=== PATIENT | female | born 1995 | race Caucasian/White ===

== ENCOUNTER 2019-04-28 06:29 | Inpatient (IN) ==
[2019-04-28] MEDS ORDERED: NS 1,000 ML IV ONE ×3 (06:53→08:24)
[2019-04-28] MEDS ORDERED: BENADRYL IM ONE (07:08)
[2019-04-28] MEDS ORDERED: STERILE WATER INJ. INJ ONE ×2 (07:08→08:56)
[2019-04-28] MEDS ORDERED: GEODON IM ONE ×2 (07:08→08:56)
[2019-04-28] MEDS ORDERED: ATIVAN IM ONE (07:08)
[2019-04-28] MEDS ORDERED: POTASSIUM CHLORIDE 20% LIQUID PO PRN (07:09)
[2019-04-28] MEDS ORDERED: HUMULIN R IV ONE (07:09)
[2019-04-28] MEDS ORDERED: SODIUM PHOSPHATE 30 MMOL in D5W 250 ML IV PRN ×2 (07:09→14:25)
[2019-04-28] MEDS ORDERED: POTASSIUM CHLORIDE 10% LIQUID PO PRN ×2 (07:09→14:25)
[2019-04-28] MEDS ORDERED: D50W SYRINGE IV PRN ×2 (07:09)
[2019-04-28] MEDS ORDERED: MAGNESIUM SULFATE 2 GM/S.W.I. 2 GM/50 ML IVPB IV PRN (07:09)
[2019-04-28] MEDS ORDERED: POTASSIUM CHLORIDE 20 MEQ/SWI 20 MEQ/100 ML IVPB IV PRN ×2 (07:09)
[2019-04-28] MEDS ORDERED: SODIUM BICARBONATE 8.4% 100 MEQ in STERILE WATER INJ. 500 ML IV PRN ×2 (07:09→14:25)
[2019-04-28] MEDS ORDERED: HUMULIN R 100 UNIT in NS 100 ML IV SCH ×2 (07:15→14:30)
[2019-04-28 08:06] LABS: ALLEN TEST NO; BE -7.8 mmoll (-3.0-3.0); BLOOD TYPE ARTERIAL; HCO3-(ACT) 18.8 mmoll (20.0-26.0); METHB 1.3 % (0.0-1.5); MODALITY ROOM AIR; O2HB 94.4 % (95.0-99.0); PCO2(98.6) 30 mmHg (35-45); PO2(98.6) 77 mmHg (60-100); SAMPLE BLOOD; SAO2 97.2 % (95.0-100.0); THB 12.8 g/dL (11.5-17.4); pH(98.6) 7.35 (7.35-7.45)
[2019-04-28 08:09] LABS: URINE SOURCE CATH
[2019-04-28 08:20] LABS: BILIRUBIN URINE NEGATIVE (NEGATIVE); BLOOD URINE SMALL (NEGATIVE); COLOR STRAW; GLUCOSE URINE >1000 mg/dL (NEGATIVE); KETONE URINE 20 mg/dL (NEGATIVE); LEUKOCYTES URINE NEGATIVE (NEGATIVE); NITRITE URINE NEGATIVE (NEGATIVE); PH URINE 5.5; PROTEIN URINE NEGATIVE (NEGATIVE); SP GRAVITY URINE 1.023; TURBIDITY URINE CLEAR (CLEAR); UROBILINOGEN URINE NORMAL (NORMAL)
[2019-04-28 08:22] LABS: UR EPITHELIAL CELLS <10 /HPF (<10); URINE BACTERIA 2+ /HPF; URINE RBC <10 /HPF (<10); URINE WBC <10 /HPF (<10)
[2019-04-28] MEDS ORDERED: ZOSYN 4.5 GM in NS 100 ML IV ONE (08:24)
[2019-04-28] MEDS: OFIRMEV 1000 MG/ISOTONIC SOLN 1,000 MG/100 ML BOTTLE IV PRN ×2 (08:30→14:48)
[2019-04-28 08:31] LABS: HEMATOCRIT 40.5 % (37.0-47.0); HEMOGLOBIN 12.5 g/dL (12.0-16.0); MCHC 30.9 g/dL (33-37); MCV 84.4 FL (81-99); MPV 11.6 FL (7.4-10.4); RBC 4.8 XMIL (4.2-5.4); WBC 14.94 X1000 (4.8-10.8)
[2019-04-28 08:40] LABS: UR AMPHETAMINES QUAL NONE DETECTED (NONE DETECT); UR BARBITUATES QUAL NONE DETECTED (NONE DETECT); UR BENZODIAZEPIN QUAL NONE DETECTED (NONE DETECT); UR CANNABINOIDS QUAL NONE DETECTED (NONE DETECT); UR COCAINE QUAL PRESUMPTIVE POSITIVE (NONE DETECT); UR METHADONE QUAL NONE DETECTED (NONE DETECT); UR OPIATES QUAL NONE DETECTED (NONE DETECT); UR OXYCODONE QUAL NONE DETECTED (NONE DETECT); UR PCP QUAL NONE DETECTED (NONE DETECT)
[2019-04-28 08:46] LABS: AGAP 27; ALB/GLOB RATIO 1.4; ALBUMIN 4.6 g/dL (3.5-5.0); ALKALINE PHOSPHATASE 140 U/L (32-104); BUN 25 mg/dL (8-22); CALCIUM 9.8 mg/dL (8.8-10.2); CHLORIDE 87 mmol/L (98-107); CK PROFILE 61 U/L (24-173); COSMO 305; CREATININE 1.2 mg/dL (0.5-0.9); ESTIMATED GFR 55; GOT 11 U/L (10-30); GPT 10 U/L (10-36); MAGNESIUM 2.2 mg/dL (1.5-2.7); PHOSPHORUS 4.5 mg/dL (2.7-4.5); POTASSIUM 5.3 mmol/L (3.5-5.1); SODIUM 132 mmol/L (136-145); TCO2 18 mmol/L (25-35); TOTAL BILIRUBIN 0.25 mg/dL (0.20-1.00)
[2019-04-28 08:48] LABS: INR 0.94; PROTIME 12.7 Seconds (11.0-16.0)
[2019-04-28 08:56] LABS: GLUCOSE 746 mg/dL (70-104)
[2019-04-28] MEDS ORDERED: ATIVAN IV ONE (08:56)
[2019-04-28] MEDS ORDERED: TORADOL IV ONE (08:56)
--- NOTE | 2019-04-28 09:01 | Diag Imaging Result Doc PS360 ---
EXAM: CHEST-PORTABLE INDICATION: ams TECHNIQUE: One view COMPARISON: 06/24/2012 FINDINGS: The lungs are grossly clear. There is no discrete pleural fluid collection or pneumothorax. The cardiomediastinal silhouette and central vasculature are grossly unremarkable. IMPRESSION: No evidence of acute pathology by plain radiograph. Electronically signed by Wisam Dooley 04/28/2019 8:59 AM
[2019-04-28 09:21] LABS: ACETONE SERUM MODERATE (NEGATIVE)
[2019-04-28] MEDS ORDERED: DANTRIUM IV STA (10:09)
[2019-04-28] MEDS ORDERED: VERSED IV ONE ×2 (10:10→12:02)
[2019-04-28] MEDS ORDERED: LABETALOL IV ONE (10:11)
[2019-04-28] MEDS ORDERED: KETAMINE IV ONE (10:12)
[2019-04-28] MEDS ORDERED: STERILE WATER IV ONE (10:30)
[2019-04-28] MEDS ORDERED: DANTRIUM IV ONE (10:30)
[2019-04-28] MEDS ORDERED: ZEMURON IV ONE ×2 (10:50→10:53)
[2019-04-28] MEDS ORDERED: STERILE WATER INJ. ONE ×2 (10:51→12:09)
[2019-04-28] MEDS ORDERED: AMIDATE IV ONE (10:53)
[2019-04-28] MEDS: NS 1,000 ML IV SCH ×3 (10:53→15:59)
[2019-04-28] MEDS ORDERED: MAXIPIME 2 GM/NS 2 GM/100 ML IVPB IV SCH (11:00)
[2019-04-28] MEDS ORDERED: VANCOMYCIN IV PER PHARMACY MISC SCH (11:00)
[2019-04-28] MEDS ORDERED: DIPRIVAN 1% 1,000 MG/100 ML BOTTLE ONE (11:01)
--- NOTE | 2019-04-28 11:11 | PROVIDER DOCUMENTATION ---
This chart was entered by Carol Monique Scribe, acting as scribe for Sergio Echevarria MD. HPI-General Adult - General Chief Complaint: DKA ALERT Stated Complaint: DIABETIC Time Seen by Provider: 04/28/19 07:05 Source: family Allergies/Adverse Reactions: Patient Allergies Allergy/AdvReac Type Severity Reaction Status Date / Time No Known Allergies Allergy Verified 04/28/19 08:14 Home Medications: Home Medication List Medication Instructions Recorded Confirmed Last Taken Type Insulin Glargine [Lantus] 24 unit SUBQ QHS 06/24/12 06/24/12 06/22/12 19:00 History Insulin Lispro [Humalog] 1 unit SUBQ DIRECTED 06/24/12 06/24/12 06/24/12 07:0 0 History NPH, Human Insulin Isophane 15 unit SQ BID #0 ml 06/25/12 Unknown Rx [Humulin N] - History of Present Illness -Gen Adult Nature of Presenting Problems: Patient is a 24 y/o female presenting to the ED today c/o possible DKA. Patient's fiancee provides history. Patient has a history of Type 1 Diabetes. Fiancee states that patient was at baseline when he left for work last night and that upon returning home, he found her laying on the ground in a pile of diarrhea. Patient is altered, combative, and nonverbal on exam. Onset/Duration: reports: just prior to arrival Associated Symptoms: reports: diarrhea, other (altered mental status) - Diabetes Related Context Context: reports: change in mental status Review of Systems - Adult - REVIEW OF SYSTEMS - ADULT ROS:: unobtainable per condition Constitutional: reports: no symptoms reported Eyes: reports: no symptoms reported Ears, Nose, Mouth & Throat: reports: no symptoms reported Cardiovascular: reports: no symptoms reported Respiratory: reports: no symptoms reported Gastrointestinal: reports: no symptoms reported Genitourinary: reports: no symptoms reported Musculoskeletal: reports: no symptoms reported Integumentary: reports: no symptoms reported Neurological: reports: no symptoms reported Psychiatric: reports: no symptoms reported Endocrine: reports: no symptoms reported Hematologic/Lymphatic: reports: no symptoms reported Allergic/Immunologic: reports: no symptoms reported All Other Systems: Reviewed and Negative Past History - Adult - PAST MEDICAL HISTORY-ADULT Review of Records: reports: Old Records Reviewed, Nursing Assessment Review, Medications Reviewed, Social history reviewed & non-contributory. Endocrine/Immune: reports: Diabetes Diabetes Type: Type 1 Physical Exam-General - PHYSICAL EXAM-ADULT Initial Vital Signs Reviewed: Yes (febrile, tachycardic, hypertensive) - CONSTITUTIONAL General Appearance: slow to respond, combative - EYES Eyes: PERRL/EOMI, pink conjunctivae - HEAD, EARS, NOSE, MOUTH & THROAT HENMT: normocephalic/atraumatic, other (dry mucous membranes) - NECK Neck: full range of motion, supple, normal inspection - RESPIRATORY Respiratory: lungs clear, normal breath sounds, no respiratory distress, no accessory muscle use, increased rate - CARDIOVASCULAR Cardiovascular: no edema, tachycardia - GASTROINTESTINAL (ABDOMEN) Abdominal Exam: non tender, soft - LYMPHATIC Lymphatic: no adenopathy - MUSCULOSKELETAL Back Exam: normal inspection Extremity: normal range of motion, normal gait, normal inspection - SKIN Integumentary: normal color, normal turgor, warm/dry - NEUROLOGIC Neurologic: grossly normal - PSYCHIATRIC Psych/Mental Status: disoriented x 3, other (combative and nonverbal on exam - requiring restraints) Progress - PLAN OF CARE/RESULTS Progress/Plan/Lab Results: Vital Signs - 8 hr 04/28/19 07:50 04/28/19 08:42 Temperature 102.9 F H 104.4 F H Pulse Rate 148 H 160 H Respiratory Rate 26 H 27 H Blood Pressure 219/187 O2 Sat by Pulse Oximetry 94 L 100 Bedside Urine ED: Urine Bedside Start: 04/28/19 06:49 Freq: NOW Status: Active Protocol: Activity Type Activity Date Activity User E-Sign Co-Sign Detail Recorded Client Recorded Date Recorded By Document 04/28/19 07:53 [id number] 04/28/19 07:53 [id number] 04/28/19 07:53 Point of Care [Bedside Point of Care] -Lot # [id number] - Results Negative -Control Line Visible? Yes ED: Urine Bedside Start: 04/28/19 07:09 Freq: NOW Status: Complete Protocol: Activity Type Activity Date Activity User E-Sign Co-Sign Detail Recorded Client Recorded Date Recorded By Edit Status 04/28/19 07:59 [id number] Active=>Complete [id number] 04/28/19 07:59 [id number] Laboratory Results - last 24 hr 02/01/20 02/01/20 02/01/20 07:30 07:51 07:51 WBC RBC Hgb Hct MCV MCH MCHC RDW Std Deviation Plt Count MPV PT INR PTT (Actin FS) Specimen Type Sample Site pH pCO2 pO2 HCO3 Base Excess Oxyhemoglobin ABG O2 Sat (Calculated) ABG O2 Saturation ABG Carboxyhemoglobin ABG Methemoglobin Rj Test A-a O2 Difference Total Hemoglobin Lactate Blood Gas Modality FiO2 % Sodium 132 L Potassium 5.3 H Chloride 87 L Carbon Dioxide 18 L Anion Gap 27 BUN 25 H Creatinine 1.2 H Estimated GFR/1.73 m2 55 BUN/Creatinine Ratio 21 Calculated Osmolality 305 Calcium 9.8 Phosphorus 4.5 Magnesium 2.2 Total Bilirubin 0.25 AST 11 ALT 10 Alkaline Phosphatase 140 H Creatine Kinase 61 Total Protein 8.0 Albumin 4.6 Globulin 3.4 Albumin/Globulin Ratio 1.4 Plasma Lactate Urine Source CATH Urine Color STRAW Urine Turbidity CLEAR Urine pH 5.5 Ur Specific [place] 1.023 Urine Protein NEGATIVE Ur Glucose (Stick) >1000 A Ur Ketones (Stick) 20 A Urine Blood SMALL A Urine Nitrite NEGATIVE Urine Bilirubin NEGATIVE Urobilinogen Dipstick NORMAL Urine Leukocytes NEGATIVE Urine WBC (Auto) <10 Urine RBC (Auto) <10 U Epithel Cells (Auto) <10 Urine Bacteria (Auto) 2+ Urine Opiates Screen Ur Oxycodone Screen Ur Methadone, Qual Ur Barbiturates Screen Ur Phencyclidine Scrn Ur Amphetamines Screen U Benzodiazepines Scrn Urine Cocaine Screen U Cannabinoids Screen Plasma/Serum Ethyl Alc 04/28/19 04/28/19 04/28/19 07:51 07:51 07:51 WBC 14.94 H RBC 4.80 Hgb 12.5 Hct 40.5 MCV 84.4 MCH 26.0 L MCHC 30.9 L RDW Std Deviation 13.0 Plt Count 368 MPV 11.6 H PT 12.7 INR 0.94 PTT (Actin FS) 24.0 Specimen Type Sample Site pH pCO2 pO2 HCO3 Base Excess Oxyhemoglobin ABG O2 Sat (Calculated) ABG O2 Saturation ABG Carboxyhemoglobin ABG Methemoglobin Rj Test A-a O2 Difference Total Hemoglobin Lactate Blood Gas Modality FiO2 % Sodium Potassium Chloride Carbon Dioxide Anion Gap BUN Creatinine Estimated GFR/1.73 m2 BUN/Creatinine Ratio Calculated Osmolality Calcium Phosphorus Magnesium Total Bilirubin AST ALT Alkaline Phosphatase Creatine Kinase Total Protein Albumin Globulin Albumin/Globulin Ratio Plasma Lactate 2.5 H Urine Source Urine Color Urine Turbidity Urine pH Ur Specific [place] Urine Protein Ur Glucose (Stick) Ur Ketones (Stick) Urine Blood Urine Nitrite Urine Bilirubin Urobilinogen Dipstick Urine Leukocytes Urine WBC (Auto) Urine RBC (Auto) U Epithel Cells (Auto) Urine Bacteria (Auto) Urine Opiates Screen Ur Oxycodone Screen Ur Methadone, Qual Ur Barbiturates Screen Ur Phencyclidine Scrn Ur Amphetamines Screen U Benzodiazepines Scrn Urine Cocaine Screen U Cannabinoids Screen Plasma/Serum Ethyl Alc 04/28/19 04/28/19 07:54 07:55 WBC RBC Hgb Hct MCV MCH MCHC RDW Std Deviation Plt Count MPV PT INR PTT (Actin FS) Specimen Type ARTERIAL Sample Site R BRACHIAL pH 7.35 pCO2 30 L pO2 77 HCO3 18.8 L Base Excess -7.8 L Oxyhemoglobin 94.4 L ABG O2 Sat (Calculated) 17.0 ABG O2 Saturation 97.2 ABG Carboxyhemoglobin 1.70 ABG Methemoglobin 1.3 Rj Test NO A-a O2 Difference 35.0 Total Hemoglobin 12.8 Lactate 2.00 Blood Gas Modality ROOM AIR FiO2 % 21.0 Sodium Potassium Chloride Carbon Dioxide Anion Gap BUN Creatinine Estimated GFR/1.73 m2 BUN/Creatinine Ratio Calculated Osmolality Calcium Phosphorus Magnesium Total Bilirubin AST ALT Alkaline Phosphatase Creatine Kinase Total Protein Albumin Globulin Albumin/Globulin Ratio Plasma Lactate Urine Source Urine Color Urine Turbidity Urine pH Ur Specific [place] Urine Protein Ur Glucose (Stick) Ur Ketones (Stick) Urine Blood Urine Nitrite Urine Bilirubin Urobilinogen Dipstick Urine Leukocytes Urine WBC (Auto) Urine RBC (Auto) U Epithel Cells (Auto) Urine Bacteria (Auto) Urine Opiates Screen NONE DETECTED Ur Oxycodone Screen NONE DETECTED Ur Methadone, Qual NONE DETECTED Ur Barbiturates Screen NONE DETECTED Ur Phencyclidine Scrn NONE DETECTED Ur Amphetamines Screen NONE DETECTED U Benzodiazepines Scrn NONE DETECTED Urine Cocaine Screen PRESUMPTIVE POSITIVE A U Cannabinoids Screen NONE DETECTED Plasma/Serum Ethyl Alc Orders Category Date Time Status Cardiac Monitoring DIRECTED Care 04/28/19 07:09 Active ED: Urine Bedside NOW Care 04/28/19 07:09 Completed FSBS/Accucheck Result NOW Care 04/28/19 06:47 Active FSBS/Accucheck Result Q15M Care 04/28/19 07:09 Active FSBS/Accucheck Result Q1H Care 04/28/19 07:09 Active Sales Cath Insertion ORDERED Care 04/28/19 07:12 Active Hypoglycemia/FSBS <50 or Range of 50-70 PRN Care 04/28/19 07:09 Active IV Insertion ORDERED Care 04/28/19 08:23 Completed Notify Physician ORDERED Care 04/28/19 07:09 Active Notify Physician As Ordered Care 04/28/19 08:23 Active Saline Loc DIRECTED Care 04/28/19 07:09 Active Saline Loc NOW Care 04/28/19 06:48 Active Seizure Precautions ROUTINE Care 04/28/19 06:48 Active Urine Preg [ED: Urine Bedside] NOW Care 04/28/19 06:49 Active Vital Signs Order Q1H Care 04/28/19 07:09 Active CHEST-PORTABLE [RAD] Stat Exams 04/28/19 07:[address] HEAD W/O CONTRAST [CT] Stat Exams 04/28/19 07:12 Ordered ABG [RESP] Routine Lab 04/28/19 07:55 Completed ACETONE SERUM [CHEM] Stat Lab 04/28/19 07:51 Results ALCOHOL BLOOD Stat Lab 04/28/19 07:51 Completed BLOOD CULTURE [BLDCUL] Stat Lab 04/28/19 07:51 Received C DIFF TOXIN [STOOL] Stat Lab 04/28/19 08:23 Uncollected CBC WITH NO DIFF [HEME] Stat Lab 04/28/19 07:51 Completed CK PROFILE [SP CHEM] Stat Lab 04/28/19 07:51 Results COMPREHENSIVE METABOLIC PANEL [CHEM] Stat Lab 04/28/19 07:51 Results LACTATE, PLASMA [CHEM] Lab 04/28/19 08:50 Ordered LACTATE, PLASMA [CHEM] Lab 04/28/19 11:30 Uncollected LACTATE, PLASMA [CHEM] Lab 04/28/19 14:30 Uncollected LACTATE, PLASMA [CHEM] Stat Lab 04/28/19 07:51 Completed MAGNESIUM [CHEM] Stat Lab 04/28/19 07:51 Results PHOSPHORUS [CHEM] Stat Lab 04/28/19 07:51 Results PROTIME WITH INR [COAG] Stat Lab 04/28/19 07:51 Completed PTT [COAG] Stat Lab 04/28/19 07:51 Completed STOOL CULTURE [RM] Stat Lab 04/28/19 08:23 Uncollected TROPONIN T HIGH SENSITIVITY Stat Lab 04/28/19 07:54 Received URINALYSIS [URINALYSIS] Stat Lab 04/28/19 07:30 Completed URINE DRUG SCREEN Stat Lab 04/28/19 07:54 Completed 0.9% Sodium Chloride Inj [Ns] 1,000 ml Med 04/28/19 07:15 Active IV 500 mls/hr 0.9% Sodium Chloride Inj [Ns] 1,000 ml Med 04/28/19 06:53 Discontinued IV 999 mls/hr 0.9% Sodium Chloride Inj [Ns] 1,000 ml Med 04/28/19 07:09 Discontinued IV 999 mls/hr 0.9% Sodium Chloride Inj [Ns] 1,000 ml Med 04/28/19 08:24 Active IV 999 mls/hr 0.9% Sodium Chloride Inj [Ns] 100 ml Med 04/28/19 07:15 Active Insulin Human Regular [Humulin R] 100 unit IV Per Protocol mls/hr Acetaminophen [Ofirmev 1000 mg/Isotonic Soln] Med 04/28/19 08:24 Active 1,000 mg in 100 ml IV Q6H PRN Dextrose 50% Syringe [D50w Syringe] Med 04/28/19 07:09 Active 25 ml IV PRN PRN Dextrose 50% Syringe [D50w Syringe] Med 04/28/19 07:09 Active 50 ml IV PRN PRN Diphenhydramine [Benadryl] Med 04/28/19 07:08 Discontinued 50 mg IM NOW ONE Insulin Human Regular [Humulin R] Med 04/28/19 07:09 Discontinued 8 unit IV ONCE ONE Lorazepam [Ativan] Med 04/28/19 07:08 Discontinued 2 mg IM NOW ONE Magnesium Sulfate 2 gm/S.w.i. Med 04/28/19 07:09 Active 2 gm in 50 ml IV ONCE PRN Piperacillin/Tazobactam [Zosyn] 4.5 gm Med 04/28/19 08:24 Active 0.9% Sodium Chloride Inj [Ns] 100 ml IV NOW Potassium Chloride 10% Liquid Med 04/28/19 07:09 Active 20 meq PO ONCE PRN PRN Potassium Chloride 20 Meq/Swi Med 04/28/19 07:09 Active 20 meq in 100 ml IV ONCE PRN Potassium Chloride 20 Meq/Swi Med 04/28/19 07:09 Active 20 meq in 100 ml IV ONCE PRN Potassium Chloride 20% Liquid Med 04/28/19 07:09 Active 40 meq PO ONCE PRN PRN Sodium Bicarbonate 8.4% 100 meq Med 04/28/19 07:09 Active Water, Sterile Inj [Sterile Water Inj] 500 ml IV ONCE PRN Sodium Phosphate 30 mmol Med 04/28/19 07:09 Active Dextrose 5%-Water Inj [D5w] 250 ml IV ONCE PRN Water, Sterile Inj [Sterile Water Inj.] Med 04/28/19 07:08 Discontinued 1.2 ml INJ NOW ONE Ziprasidone [Geodon] Med 04/28/19 07:08 Discontinued 20 mg IM NOW ONE Hypoglycemia Stat Oth 04/28/19 07:09 Ordered Oxygen Device Stat Ot 04/28/19 08:23 Active EKG [EKG] Routine Ther 04/28/19 07:09 Ordered Result Diagrams: 04/28/19 07:51 04/28/19 07:51 - REASSESSMENT Reassessment #1 Time Reassessed: 09:50 Status: unchanged (temperature is still 104 despite IV Toradol and IV Tylenol. Will apply ice packs. Patient's combative behavior is improved with sedation) Reassessment #2 Time Reassessed: 10:10 Status: unchanged (Patient continues to be agitated, remains tachycardic at 150 as well as hypertensive and tachypnic, her blood sugar is now 470) Reassessment #3 Time Reassessed: 11:08 Status: improving (After consulting with Dr. Franks, we have decided to electively intubate to control airway and obtain CT scans. Patient has shown minimal sedation with multiple BZD, and Geodon and benadryl. Has been given IV zosyn for possible sepsis. I ordered IV labetalol for severe HTN, I also ordered IV dantrolene infusion in case of drug induced malignant hyperthermia.) - EKG 1 Time of EKG reading by physician:: 08:00 EKG Read and Signed by:: Sergio Echevarria EKG Interpretation (*Must complete 3 of following elements*): Abnormal Rate: 147 Rhythm: Sinus tachycardia QRS: poor R wave progression Comments: artifact present, biatrial enlargement - XRAY 1 XRAY Study: Chest Impression: See EMR Report (EXAM: CHEST-PORTABLE INDICATION: ams TECHNIQUE: One view COMPARISON: 06/24/2012 FINDINGS: The lungs are grossly clear. There is no discrete pleural fluid collection or pneumothorax. The cardiomediastinal silhouette and central vasculature are grossly unremarkable. IMPRESSION: No evidence of acute pathology by plain radiograph. Electronically signed by Wisam Dooley 04/28/2019 8:59 AM 04/28/19 0859 Interpreting Physician: Wisam Dooley MD Dictated Date/Time: 04/28/19 0858 cc: Sergio Echevarria MD; None,PCP) - CONSULTS/PCP/HOSPITALIST Notification #1 *Consult/PCP/Hospitalist*: Hospitalist Time Discussed: 10:19 Reason/Comments: Admission - patient accepted for admission Consult Disposition: Will see in ED, Admit Departure - Departure Date of Disposition Decision: 04/28/19 Time of Disposition Decision: 11:10 DIAGNOSIS: Severe sepsis, Malignant hypertension, Cocaine abuse Diabetic ketoacidosis associated with type 1 diabetes mellitus Qualifiers: Diabetes mellitus complication detail: with coma Qualified Code(s): E10.11 - Type 1 diabetes mellitus with ketoacidosis with coma Hyperthermia, malignant Qualifiers: Encounter type: initial encounter Qualified Code(s): T88.3XXA - Malignant hyperthermia due to anesthesia, initial encounter Disposition: ADMITTED INPATIENT 09 Certified Medical Emergency: Emergent Condition: Critical Referrals and Follow-Ups: None,PCP [Primary Care Provider] - - Critical Care Note This patient required my direct & personal management of CC.: Yes Total Time (mins): 60 Critical Care Statement: This patient required my direct personal management to treat or rule out processes, the absence of which, could potentiallly result in sudden, clinically significant life or limb threatening deterioration. Attestation - Physician/ MITZY Attestation Patient care was provided by Advanced Practice Provider:: No The physician spent face to face time with patient:: Yes Advanced Practice Provider documentation review:: Supervising physician onsite and consulted in the evaluation and care of this patient. The physician did have a face to face encounter with the patient. This chart was documented by the indicated scribe, (Carol Monique Scribe) and accurately reflects the services I performed and decisions made by me, Sergio Echevarria MD, as attested by the provider's signature.
[2019-04-28] MEDS: DIPRIVAN 1% 1,000 MG/100 ML BOTTLE IV SCH ×4 (11:13→22:09)
[2019-04-28] MEDS ORDERED: WATER INJ ONE ×2 (11:48→11:50)
[2019-04-28] MEDS ORDERED: MAXIPIME 2 GM/NS 2 GM/100 ML IVPB IV ONE (12:00)
[2019-04-28] MEDS ORDERED: VERSED ONE (12:07)
--- NOTE | 2019-04-28 12:23 | Diag Imaging Result Doc PS360 ---
EXAM: CHEST-PORTABLE INDICATION: intubation TECHNIQUE: One view COMPARISON: None. FINDINGS: There is a newly placed ET tube projects over the trachea and above the binh at about the T3 level. Lungs remain grossly clear. There is no discrete pleural fluid collection or pneumothorax. The cardiomediastinal silhouette and central vasculature are grossly unremarkable. IMPRESSION: Interval intubation as described. Stable chest, otherwise. Electronically signed by Wisam Dooley 04/28/2019 12:21 PM
--- NOTE | 2019-04-28 13:15 | SEPSIS: TISSUE PERFUSION ASSMT ---
Sepsis: Tissue Perfusion Assmt - Physical Exam Assessment Date: 04/28/19 Time Assessment Initialized: 13:11 Vital Signs: Last Vital Signs Temp 102.6 F H 04/28/19 12:58 Pulse 115 H 04/28/19 12:58 Resp 18 04/28/19 12:58 BP 108/64 04/28/19 12:58 Pulse Ox 100 04/28/19 12:58 Height 5 ft 4 in Weight 54.431 kg Lung Sounds:: lungs clear Heart Sounds:: Regular (tachycardic still) Capillary Refill Time: Less Than 2 Seconds Peripheral Pulse Evaluation:: radial (R): 2+, radial (L): 2+ Skin Exam:: pale, turgor good - Impression Impression:: Tissue Perfusion Adequate - Plan Plan:: No Change
--- NOTE | 2019-04-28 13:50 | Diag Imaging Result Doc PS360 ---
EXAM: CT HEAD W/O CONTRAST INDICATION: ams TECHNIQUE: This exam was performed using automated exposure control, adjustment of mA or kV according to patient size, and/or use of iterative reconstruction technique. COMPARISON: None. FINDINGS: There is no definite acute infarct given the limited sensitivity of CT versus MRI. There is no discrete intracranial mass, mass effect, or intracranial hemorrhage. The surrounding soft tissues and bony structures are essentially unremarkable. IMPRESSION: No evidence of acute intracranial pathology. Electronically signed by Wisam Dooley 04/28/2019 1:47 PM
--- NOTE | 2019-04-28 13:54 | Diag Imaging Result Doc PS360 ---
EXAM: CT ABD/PELVIS W/IV CONT ONLY INDICATION: colitis TECHNIQUE: This exam was performed using automated exposure control, adjustment of mA or kV according to patient size, and/or use of iterative reconstruction technique. COMPARISON: None. FINDINGS: There is a 1.4 cm noncalcified nodule in the anterior left lower lobe at the base that is nonspecific, statistically most likely a granuloma given the age of the patient. There is mild subsegmental atelectasis at both lung bases. The gallbladder, liver, and spleen are unremarkable. There is extensive patchy calcification seen throughout the pancreatic parenchyma consistent with chronic pancreatitis. No peripancreatic inflammatory changes are appreciated to indicate acute pancreatitis. The adrenal glands are unremarkable. There is slight prominence of the left renal collecting system as compared to the right of unknown acuity. There is no perinephric stranding and the kidneys enhance normally. There is a Sales catheter in the urinary bladder. The urinary bladder wall is mildly thickened. This is probably due to underdistention. Correlate clinically to exclude a component of cystitis. The reproductive tract is essentially unremarkable as imaged. No definite colonic wall thickening is identified to indicate colitis. The appendix is not identified but there are no secondary signs of appendicitis. No small bowel wall thickening is identified. A feeding tube is seen in the gastric lumen. No free abdominal gas or significant free fluid is identified. No focal inflammatory changes are identified in the abdomen or pelvis. There is no evidence of acute osseous abnormality. IMPRESSION: 1.Extensive pancreatic calcification indicating chronic pancreatitis. No peripancreatic inflammatory changes identified to indicate acute pancreatitis. 2.Mildly prominent left renal collecting system as compared to the right of unknown acuity. No obstructing stone is identified. 3.Mild thickening of the urinary bladder wall likely due to underdistention. Correlate clinically to exclude a component of cystitis. 4.Nonspecific 1.4 cm nodule at the left lung base. 5.Other incidental/nonacute findings detailed above. Electronically signed by Wisam Dooley 04/28/2019 1:52 PM
[2019-04-28] MEDS ORDERED: POTASSIUM CHLORIDE 40 MEQ/SWI 40 MEQ/100 ML IVPB IV PRN (14:25)
[2019-04-28] MEDS ORDERED: TYLENOL PR PRN (14:25)
[2019-04-28] MEDS ORDERED: TYLENOL PO PRN (14:40)
[2019-04-28] MEDS ORDERED: PROTONIX IV SCH (15:15)
[2019-04-28] MEDS ORDERED: SODIUM CHLORIDE 0.9% INJ SCH (15:15)
[2019-04-28 15:25] LABS: HEMOGLOBIN A1C 13.3 % (4.8-6.0)
[2019-04-28] MEDS: DUONEB (A & A) INH PRN (15:40)
[2019-04-28 15:41] LABS: AMYLASE 22 U/L (20-200); LIPASE 29 U/L (13-60)
[2019-04-28 15:45] LABS: AGAP 14; BUN 20 mg/dL (8-22); CALCIUM 7.5 mg/dL (8.8-10.2); CHLORIDE 111 mmol/L (98-107); COSMO 295; CREATININE 1.1 mg/dL (0.5-0.9); ESTIMATED GFR > 60; GLUCOSE 228 mg/dL (70-104); MAGNESIUM 1.7 mg/dL (1.5-2.7); PHOSPHORUS 1.8 mg/dL (2.7-4.5); SODIUM 143 mmol/L (136-145); TCO2 18 mmol/L (25-35)
[2019-04-28 15:50] LABS: ALLEN TEST YES; BE -3.4 mmoll (-3.0-3.0); BLOOD TYPE ARTERIAL; HCO3-(ACT) 22.3 mmoll (20.0-26.0); METHB 0.6 % (0.0-1.5); O2(CT) 12.3 mL/dL (15.0-23.0); O2HB 97.7 % (95.0-99.0); PCO2(98.6) 41 mmHg (35-45); PO2(98.6) 188 mmHg (60-100); SAMPLE BLOOD; SAO2 99.7 % (95.0-100.0); SRATE 16 BPM; THB 8.6 g/dL (11.5-17.4); TVOL 450 mL; pH(98.6) 7.34 (7.35-7.45)
[2019-04-28 15:51] LABS: MODALITY VENTILATOR
[2019-04-28] MEDS: VERSED 100 MG in NS 80 ML IV SCH (15:52)
--- NOTE | 2019-04-28 15:53 | HISTORY AND PHYSICAL ---
ADDENDUM: I agree with most components of history, physical assessment and plan. In brief Ms. Cintron is 24 years old lady with past medical history of type 1 diabetes mellitus, medication noncompliance due to cost issues, was brought in by her boyfriend as she was found to be unresponsive with her clothes untied and bowel movement on the floor. Initially I was consulted by emergency room physician to help with her management considering she was significantly agitated in the emergency room despite receiving multiple sedative hypnotic medications and head CT could not be performed. I had evaluated her at that time and had obtained history from her boyfriend and had suggested to the emergency room that patient may need intubation for airway protection considering persistently altered mental status and head CT could be performed, if head CT did not have an acute intracranial bleed my plan was to admit her for further management of her DKA and acute encephalopathy. Head CT did not have an acute intracranial bleed so I am going to admit the patient. Source of history has been patient's boyfriend. According to him, patient was in her usual state of health until yesterday 10 p.m. when he saw her for the last time and then patient had left to her friend's house, boyfriend tells me that patient has been taking her insulin though not very regularly and patient has also been intermittently snorting cocaine, boyfriend says it is possible that she may have snorted cocaine last night though he was not sure. Boyfriend says that he got a call from patient's friend that patient was behaving abnormally so he went there and called EMS and brought patient to the emergency room. In the emergency room patient was found to be agitated and confused and had hyperglycemia with blood glucose more than 700, elevated anion gap, acute kidney injury and acetone in urine, though she was not acidotic she was borderline with pH of 7.35. She was started on intravenous fluid resuscitation according to DKA protocol, for airway protection she was intubated, was started on propofol drip and hospitalist team was consulted further management. VITALS: Temperature of 102.6 degrees, pulse 115, respiratory 18, blood pressure 108/64, she is saturating 100% on mechanical ventilation. PHYSICAL EXAMINATION: I evaluated the patient right before intubation. She is confused, agitated and is moving all extremities spontaneously appears very fidgety. Pupils are about 4 mm size bilaterally and briskly reacting to light. She likely has nasal turbinate hypotrophy on the left side, I could not appreciate oral cavity. Air entry bilaterally equal. No wheeze, rhonchi or crackles. S1, S2 normal. Appears tachycardic. No murmur, rub, or gallop. ABDOMEN: Soft. I could not appreciate hepatosplenomegaly. No lower extremity edema. She does have some petechial ricks on her both arms. Unsure if this were related to track sharon. On neurologic examination patient is noncompliant with examination. I could not appreciate any neck stiffness though but again examination was limited. She is very fidgety. LABS: Suggestive of leukocytosis, normal INR, pH of 7.34, PO2 of 77 on room air. Her sodium is 132, chloride 87, potassium 5.3, blood glucose 746, anion gap of 27, lactate of 4.4. Her urine toxicology positive for cocaine. Blood culture has been in lab, influenza screen was negative. Head CT on admission did not have any evidence of acute intracranial pathology. Chest x-ray on admission did not have any evidence of acute pathology by plain radiograph. Abdomen pelvis CT had extensive pancreatic calcification suggestive of chronic pancreatitis, mildly prominent left renal collecting system as compared to right, urinary bladder wall thickening and nonspecific nodule on the left lung base. ASSESSMENT AND PLAN: 1. Sepsis the source of which needs to be determined, acute meningitis is a possibility. 2. Hyperthermia. Differential includes sepsis, DKA, serotonin syndrome though there is no history of use of any medications for anxiety or depression there have been case reports of cocaine inducing it. 3. Diabetic ketoacidosis. 4. Acute encephalopathy: Toxic due to cocaine use vs other etiology 5. S/p Intubation for airway protection 4. Substance use disorder. 5. Lactic acidosis, acute kidney injury in the setting of diabetic ketoacidosis. PLAN: 1. I will start patient on broad spectrum antibiotics including intravenous vancomycin and intravenous cefepime for better CSF penetration for suspected meningitis, follow up with blood culture results. Once she is more stable I will consider getting lumbar puncture. 2. Patient has been intubated. Will resume mechanical ventilation and consult Pulmonology. I will keep her on proton pump inhibitors for stress ulcer prophylaxis and enoxaparin for DVT prophylaxis. 3. I will keep her on acetaminophen for hyperthermia, if needed Melinda Villalta as well for her hyperthermia. 4. I will start her on DKA protocol. She has been resuscitated with intravenous fluids and will be starting her on insulin drip. 5. Consult pulmonology for ventilator management. DISPOSITION: Patient's condition is critical. More than 30 minutes of critical care time was spent taking care of this patient. I had an extensive discussion about her critical condition including high risk of mortality with her boyfriend. Her boyfriend informs me that patient does not have any immediate relative that she is in touch with. She does have a mother with whom she speaks however the contact information about her mother is not immediately available. I requested her boyfriend to bring us those information so that I could inform the family members. Plan of care discussed with the patient's boyfriend and 2 of other friends. All of the questions have been satisfactorily answered. cc: Roldan Franks MD ADDENDUM: 1700 PM 04/28/19: I again evaluated the patient at bedside. She is on high dose propofol and Midazolam drip. She is still fidgety. When I touched her to examine her pulse, she started becoming fidgety. My initial plan was to get a lumbar puncture for meningitis rule out. However, considering her extreme agitation, I don't think I would be able to do it today. Meanwhile, I would keep her on antibiotics and follow up blood culture data. [facility]
--- NOTE | 2019-04-28 16:59 | PROGRESS NOTE ---
DATE: 04/28/2019 INTERVAL HISTORY: Patient underwent head CT which did not have acute intracranial hemorrhage or stroke. She also underwent abdomen and pelvis CT which had some changes suggestive of chronic pancreatitis, but there is no acute pathology identifiable. The patient was also intubated by emergency room. Currently, she is sedated on propofol and midazolam. She is still a little fidgety and respiratory therapy just suctioned her. I updated the boyfriend about the diabetes management and the fact that she is extremely sick and we are monitoring her in ICU. cc: Roldan Franks MD
[2019-04-28] MEDS ORDERED: VANCOMYCIN 1.4 GM in NS 250 ML IV ONE (17:00)
[2019-04-28] MEDS ORDERED: LOVENOX SUBQ SCH (17:00)
[2019-04-28] MEDS: D5 NS 1,000 ML IV PRN (17:34)
--- NOTE | 2019-04-28 17:53 | EKG Report ---
Test Performed on : 04/28/2019 07:51:22 AM Test Reason : DKA Blood Pressure : / mmHG Vent. Rate : 147 BPM Atrial Rate : 147 BPM P-R Int : 122 ms QRS Dur : 070 ms QT Int : 286 ms P-R-T Axes : 072 093 058 degrees QTc Int : 447 ms Sinus tachycardia. Biatrial enlargement Rightward axis Abnormal ECG When compared with ECG of 24-JUN-2012 12:20, No significant change was found Unconfirmed Result
[2019-04-28 18:00] LABS: URINE SOURCE CATH
[2019-04-28 18:02] LABS: BILIRUBIN URINE NEGATIVE (NEGATIVE); BLOOD URINE SMALL (NEGATIVE); COLOR YELLOW; GLUCOSE URINE 500 mg/dL (NEGATIVE); KETONE URINE TRACE mg/dL (NEGATIVE); LEUKOCYTES URINE NEGATIVE (NEGATIVE); NITRITE URINE NEGATIVE (NEGATIVE); PH URINE 6.5; PROTEIN URINE TRACE mg/dL (NEGATIVE); TURBIDITY URINE CLEAR (CLEAR); UR EPITHELIAL CELLS <10 /HPF (<10); URINE BACTERIA NEGATIVE /HPF; UROBILINOGEN URINE NORMAL (NORMAL)
--- NOTE | 2019-04-28 18:17 | HISTORY AND PHYSICAL ---
PRIMARY CARE PROVIDER: No one. CHIEF COMPLAINT: Was found in an altered state of mind in the floor. HISTORY OF PRESENT ILLNESS: Ms Aileen Cintron is a 24-year-old female with a medical history of known diabetes mellitus type 1. History over the last 24 hours is obtained through the boyfriend who was at the bedside. He states that around 10 o'clock last night she was normal, had gone to a friend's house when he went to work, was called and notified by the friend that she was not acting right and came home and found her in the floor with an altered mentation along with loss of bowel and bladder was then brought to the emergency department where she was found to be in diabetic ketoacidosis. However the pH is not significantly acidotic. Workup included urine drug screen which is positive for cocaine. She did have an elevated white blood cell count at 14,000 and her lactate was also elevated and with that she also had an elevation in her temperature it despite medication given to help calm the patient down as she was significantly agitated and medications to help bring the fever down none of that worked her fever even continue to increase up to a max of 104.7. On further questioning the boyfriend at the bedside apparently she has been having sore throat, headache, neck stiffness, she has also had some stomach pain and stomach troubles with diarrhea for about a month with a 15 pound weight loss. Given the severe agitation, it was decided to electively intubate her for airway protection and send her for head CT and further imaging. PAST MEDICAL HISTORY: Diabetes mellitus type 1. Chronic pancreatitis. SURGICAL HISTORY: None. SOCIAL HISTORY: Less than a half pack per day smoker, drinks alcohol about once every other weekend, an unknown amount of cocaine use. FAMILY HISTORY: There is diabetes in both grandparents but apparently she is not very close to the family. ALLERGIES: No known drug allergies. HOME MEDICATIONS: Not reconciled. REVIEW OF SYSTEMS: Unable to be obtained. PHYSICAL EXAMINATION: VITAL SIGNS: Currently were now down to 100.2, heart rate 103, respiratory rate 17, blood pressure 102/65, O2 saturation 100% on mechanical ventilation. GENERAL: Ms. Aileen Cintron is a 24-year-old female, currently she is sedated with propofol. HEENT: Atraumatic, normocephalic. Pupils are equal and reactive. Mucous membranes are dry. NECK: Trachea midline. CARDIOVASCULAR: S1, S2. Tachycardic rate and rhythm. No rubs, gallops, murmurs. No lower extremity edema. +2 dorsalis and radial pulses. Negative JVD or carotid bruits. PULMONARY: Clear to auscultation bilateral breath sounds. No accessory muscle use or work of breathing noted. She is tolerating mechanical ventilation. GI: Soft, nontender, nondistended. Positive bowel sounds x4. EXTREMITIES: Currently sedated and not moving extremities but she had spontaneous movement prior to sedation. NEURO: Currently sedated. SKIN: Warm, dry, intact. LABORATORY DATA: White blood cells 14,000, hemoglobin 12, hematocrit 40, platelet count 368,000. ABGs on the vent pH 7.34, pCO2 40, PO2 188, bicarb 22, base excess -3.4, saturation 97%. Lactate 2.1 on a rate of 16, 40%, 450 tidal volume, PEEP of 5. Chemistry 143, potassium 4.0, BUN 20, creatinine is 1.1, glucose 228. Hemoglobin A1c 13.3, calcium 7.5, phosphorus 1.8, magnesium 1.7, bilirubin 0.25, AST 11, ALT 10, CK 61, troponin 8, triglycerides 123, cholesterol 139, LDL 86, amylase 22, lipase 29, lactate has gone from 2.5 to 4.4 back down to 3.8. Urinalysis, glucose greater than 1000, ketones 20, blood small, bacteria 2+. Urine drug screen positive for cocaine, alcohol 0, acetone level moderate. IMAGING: Head CT no acute findings. Chest x-ray no evidence of acute pathology. Abdomen pelvis CT impression shows pancreatic calcification consistent with chronic pancreatitis, prominent left renal collecting system compared to the right night, no stones. Thickened urinary bladder, possible cystitis. Left lung nodule 1.4 cm. Repeat chest x-ray after intubation endotracheal tubes in the correct position. ASSESSMENT AND PLAN: 1. Fever of unknown origin, causes could be possible meningitis. There is mention of headache and stiff neck along with sore throat. It could be blood which we have obtained blood cultures. Flu is negative, sputum pending. 2. Sepsis, see #1. She will be on broad-spectrum antibiotics and IV fluid hydration. 3. Diabetic ketoacidosis with history of diabetes mellitus type 1 and she has been started on a diabetic ketoacidosis protocol with electrolyte replacement, fluid replacement and insulin. Her anion gap is currently at 14 but initially it was at 27. Her blood glucose level initially was 746 and is down to 228, lactates up as well. 4. Cocaine abuse will need to be addressed once she is alert. 5. Intubation for airway protection and agitation. Will consult Pulmonary to manage the ventilator and help with extubation. She is on propofol currently. 6. Metabolic encephalopathy could be infective encephalopathy as well where she is on antibiotics. Electrolytes should start normalizing out and currently she is sedated. 7. Reported hypoglycemic seizures in the past. There is mention that she had a loss of bowel and bladder. It could be a possibility that there was a seizure involved. She received several benzodiazepines after she had returned here. 8. Tobacco abuse. Once she is extubated and alert cessation education will be provided. Dictated by CHINTAN Velasquez for Roldan Franks MD cc: CHINTAN Velasquez MD I agree with most components of history, physical, assessment and plan. A separate addendum has been dictated. SILVIO
[2019-04-28 18:58] LABS: AGAP 13; BUN 17 mg/dL (8-22); CALCIUM 7.4 mg/dL (8.8-10.2); CHLORIDE 115 mmol/L (98-107); COSMO 296; ESTIMATED GFR > 60; GLUCOSE 170 mg/dL (70-104); PHOSPHORUS 2.7 mg/dL (2.7-4.5); POTASSIUM 4.1 mmol/L (3.5-5.1); SODIUM 146 mmol/L (136-145); TCO2 18 mmol/L (25-35)
[2019-04-28] MEDS: POTASSIUM CHLORIDE 20 MEQ/SWI 20 MEQ/100 ML IVPB IV PRN (19:43)
[2019-04-28 23:39] LABS: AGAP 10; BUN 18 mg/dL (8-22); CALCIUM 7.3 mg/dL (8.8-10.2); CHLORIDE 117 mmol/L (98-107); COSMO 292; ESTIMATED GFR > 60; GLUCOSE 98 mg/dL (70-104); MAGNESIUM 1.8 mg/dL (1.5-2.7); PHOSPHORUS 2.2 mg/dL (2.7-4.5); POTASSIUM 3.5 mmol/L (3.5-5.1); SODIUM 146 mmol/L (136-145); TCO2 19 mmol/L (25-35)
[2019-04-29] MEDS: D5 NS 1,000 ML IV PRN ×2 (01:24→02:12)
[2019-04-29] MEDS: MAXIPIME 2 GM/NS 2 GM/100 ML IVPB IV SCH ×2 (01:24→15:32)
[2019-04-29] MEDS: NS 1,000 ML IV SCH ×3 (02:15→07:10)
[2019-04-29] MEDS: DIPRIVAN 1% 1,000 MG/100 ML BOTTLE IV SCH ×4 (02:36→19:26)
[2019-04-29 04:52] LABS: ALLEN TEST YES; BE -9.7 mmoll (-3.0-3.0); BLOOD TYPE ARTERIAL; HCO3-(ACT) 17.4 mmoll (20.0-26.0); METHB 0.5 % (0.0-1.5); O2(CT) 16.1 mL/dL (15.0-23.0); O2HB 97.8 % (95.0-99.0); PCO2(98.6) 40 mmHg (35-45); PO2(98.6) 193 mmHg (60-100); SAMPLE BLOOD; SAO2 100.2 % (95.0-100.0); SRATE 16 BPM; THB 11.4 g/dL (11.5-17.4); TVOL 450 mL; pH(98.6) 7.24 (7.35-7.45)
[2019-04-29 04:53] LABS: MODALITY VENTILATOR
[2019-04-29 05:26] LABS: AGAP 12; BUN 17 mg/dL (8-22); CALCIUM 7.5 mg/dL (8.8-10.2); CHLORIDE 117 mmol/L (98-107); COSMO 306; CREATININE 0.9 mg/dL (0.5-0.9); ESTIMATED GFR > 60; GLUCOSE 347 mg/dL (70-104); MAGNESIUM 1.9 mg/dL (1.5-2.7); PHOSPHORUS 2.8 mg/dL (2.7-4.5); POTASSIUM 4.5 mmol/L (3.5-5.1); SODIUM 146 mmol/L (136-145); TCO2 17 mmol/L (25-35)
[2019-04-29] MEDS: POTASSIUM CHLORIDE 20 MEQ/SWI 20 MEQ/100 ML IVPB IV PRN (06:00)
[2019-04-29] MEDS: PROTONIX IV SCH (06:11)
[2019-04-29] MEDS ORDERED: VANCOMYCIN IV PER PHARMACY MISC SCH (08:15)
[2019-04-29] MEDS: DUONEB (A & A) INH PRN ×4 (08:18→23:00)
--- NOTE | 2019-04-29 08:18 | Diag Imaging Result Doc PS360 ---
EXAM: CHEST-PORTABLE INDICATION: intubated TECHNIQUE: One view COMPARISON: 04/28/2019 FINDINGS: There has been interval placement of an NG tube. The tip projects below the diaphragm and is assumed to be coiled in the stomach in expected position. ET tube is stable. The lungs remain grossly clear. There is no discrete pleural fluid collection or pneumothorax. The cardiomediastinal silhouette and central vasculature are grossly unremarkable. IMPRESSION: Interval placement of feeding tube. Stable chest, otherwise. Electronically signed by Wisam Dooley 04/29/2019 8:16 AM
[2019-04-29 09:10] LABS: BASO# 0.01 X1000 (0.0-0.2); BASO% 0.1 % (0.0-0.8); EOS# 0.08 X1000 (0.0-0.7); EOS% 1.1 % (0.0-10.0); HEMATOCRIT 25.1 % (37.0-47.0); HEMOGLOBIN 7.4 g/dL (12.0-16.0); LYMPH# 1.67 X1000 (1.2-3.4); MCH 26.1 PG (27-31); MCHC 29.5 g/dL (33-37); MCV 88.4 FL (81-99); MONO# 0.63 X1000 (0.11-0.59); MONO% 8.3 % (1.7-9.3); MPV 11.2 FL (7.4-10.4); NEUT# 5.19 X1000 (1.4-6.5); NEUT% 68.5 % (42.2-75.2); PLT 206 X1000 (130-400); RBC 2.84 XMIL (4.2-5.4); RDW 13.2 % (11.5-14.5); WBC 7.58 X1000 (4.8-10.8)
[2019-04-29] MEDS: 1/2 NS 1,000 ML IV SCH ×3 (09:22→19:59)
--- NOTE | 2019-04-29 09:24 | PROGRESS NOTE ---
DATE: 04/29/2019 INTERVAL HISTORY: No acute events for interval history overnight. Unfortunately, patient's blood glucose had started rising and her D5 drip was continued so it looks like in the morning time she started going into DKA again with development of acidosis. She was also on high dose of propofol and on nursing evaluation, she was found to have unreactive pupils, so a repeat CT scan of head was performed. The read is pending. However, the prelim read I was informed did not have any acute pathology. On my review, I did not see any stroke or bleeding. SUBJECTIVE: Patient is intubated nonresponsive. I turned her propofol and midazolam drip off. After that she had started becoming fidgety and she had started becoming uncomfortable on ventilator, so we started her on midazolam back. VITALS: Temperature of 97.5 degrees, pulse 94, respiratory 16, blood pressure 106/72, saturating 100% on 40% mechanical ventilation. There was a mention of pulse of 23, though nurse could not confirm that. PHYSICAL EXAMINATION: She has endotracheal tube, NG tube, urine catheter.Lungs: Air entry bilaterally equal. No wheeze, rhonchi, or crackles. Cardiovascular: S1, S2 normal. No murmur or gallop. Abdomen: Soft, nontender. Extremity: No lower extremity edema. Neurologic: When I turned the propofol off her pupils became slightly reactive. On my evaluation, she had intact corneal. She also had good cough reflex. She is moving all extremities to painful stimuli. LABS: CBC is pending. She does have acidosis with pH of 7.24. BMP is history of hypernatremia, hyperchloremia with sodium of 146, BUN 17, creatinine 0.9, blood glucose 347. Microbiology 1 of the 2 blood cultures growing gram-negative rods. Sputum culture is pending. IMAGING: Chest x-ray in the morning has stable chest. ASSESSMENT AND PLAN: 1. Gram-negative sepsis. Differential includes acute meningitis for this other sources. Continue intravenous vancomycin and intravenous cefepime and follow up final culture data. Once I have consent, I would attempt a lumbar puncture on the patient. 2. Hyperthermia. Differential includes sepsis, diabetic ketoacidosis, serotonin syndrome with concomitant use of cocaine, now improving. I will continue intravenous acetaminophen as needed. 3. Diabetic ketoacidosis with coma. Change fluids to half-normal saline and continue intravenous insulin drip according to diabetic ketoacidosis protocol. We will replete electrolytes as necessary. I discussed this with the nursing team. 4. Acute encephalopathy, likely toxic metabolic in nature with use of substances suspected acute meningitis. 5. Respiratory failure, status post intubation for airway protection. 6. Cocaine use disorder. 7. Lactic acidosis and acute kidney injury are improving. 8. Gastrointestinal prophylaxis, continue pantoprazole, continue enoxaparin for deep venous thrombosis prophylaxis. DISPOSITION: Patient's condition is critical. She is requiring high doses of sedation for mechanical ventilation. TIME SPENT: More than 30 minutes of critical care time was spent in the care of this patient. We still do not have any of the family members contact. cc: Roldan Franks MD
--- NOTE | 2019-04-29 09:38 | EKG Report ---
Test Performed on : 04/29/2019 06:02:51 AM Test Reason : dka Blood Pressure : / mmHG Vent. Rate : 092 BPM Atrial Rate : 092 BPM P-R Int : 120 ms QRS Dur : 074 ms QT Int : 366 ms P-R-T Axes : 066 076 060 degrees QTc Int : 452 ms Normal sinus rhythm. Normal ECG When compared with ECG of 28-APR-2019 07:51, (Unconfirmed) Vent. rate has decreased BY 55 BPM Nonspecific T wave abnormality now evident in Inferior leads Confirmed by Ishaan Mcclain MD ([id number]) on 05/02/2019 12:12:46 PM
--- NOTE | 2019-04-29 10:12 | PROVIDER PROGRESS NOTE ---
Progress Note Patient has been seen and examined. A full dictation to follow.
--- NOTE | 2019-04-29 10:56 | Diag Imaging Result Doc PS360 ---
EXAM: CT HEAD W/O CONTRAST INDICATION: pupil changes TECHNIQUE: This exam was performed using automated exposure control, adjustment of mA or kV according to patient size, and/or use of iterative reconstruction technique. COMPARISON: 04/28/2019 FINDINGS: There is no definite acute infarct given the limited sensitivity of CT versus MRI. There is no discrete intracranial mass, mass effect, or intracranial hemorrhage. The surrounding soft tissues and bony structures are essentially unremarkable. IMPRESSION: No evidence of acute intracranial pathology. Electronically signed by Wisam Dooley 04/29/2019 10:54 AM
[2019-04-29] MEDS ORDERED: VANCOMYCIN 1,700 MG in NS 250 ML IV ONE (11:00)
[2019-04-29 11:16] LABS: BASO# 0.02 X1000 (0.0-0.2); BASO% 0.2 % (0.0-0.8); EOS% 1.2 % (0.0-10.0); HEMATOCRIT 28.4 % (37.0-47.0); HEMOGLOBIN 8.4 g/dL (12.0-16.0); IMM GRAN# 0.02 X1000 (0.0-0.04); IMM GRAN% 0.2 % (0.0-0.5); LYMPH# 2.03 X1000 (1.2-3.4); MCH 26.1 PG (27-31); MCHC 29.6 g/dL (33-37); MCV 88.2 FL (81-99); MONO# 0.49 X1000 (0.11-0.59); MONO% 5.8 % (1.7-9.3); MPV 11.5 FL (7.4-10.4); NEUT% 68.6 % (42.2-75.2); PLT 236 X1000 (130-400); RBC 3.22 XMIL (4.2-5.4); RDW 13.4 % (11.5-14.5); WBC 8.46 X1000 (4.8-10.8)
[2019-04-29 12:02] LABS: AGAP 14; BUN 15 mg/dL (8-22); CALCIUM 7.6 mg/dL (8.8-10.2); CHLORIDE 118 mmol/L (98-107); COSMO 303; CREATININE 0.9 mg/dL (0.5-0.9); ESTIMATED GFR > 60; GLUCOSE 272 mg/dL (70-104); MAGNESIUM 1.8 mg/dL (1.5-2.7); POTASSIUM 3.3 mmol/L (3.5-5.1); SODIUM 147 mmol/L (136-145); TCO2 15 mmol/L (25-35)
[2019-04-29 12:05] LABS: PHOSPHORUS 0.9 mg/dL (2.7-4.5)
[2019-04-29] MEDS ORDERED: D5 1/2 NS 1,000 ML IV SCH (13:15)
--- NOTE | 2019-04-29 13:42 | Diag Imaging Result Doc PS360 ---
EXAM: CHEST-PORTABLE INDICATION: central line placement TECHNIQUE: One view COMPARISON: 04/29/2019 FINDINGS: There has been interval placement of a right subclavian central line. The tip projects over the right atrium. The ET tube and NG tube are in stable positions. The lungs remain grossly clear. There is no evidence of pneumothorax status post central line placement. Cardiac silhouette is stable. IMPRESSION: Interval placement of right central line as detailed above with no evidence of pneumothorax postplacement. Electronically signed by Wisam Dooley 04/29/2019 1:39 PM
[2019-04-29] MEDS: MAGNESIUM SULFATE 2 GM/S.W.I. 2 GM/50 ML IVPB IV PRN (13:46)
[2019-04-29] MEDS: POTASSIUM CHLORIDE 20 MEQ/SWI 20 MEQ/100 ML IVPB IV SCH ×2 (14:26→17:00)
--- NOTE | 2019-04-29 15:05 | OPERATIVE NOTE ---
PROCEDURE DATE: 04/29/2019 NAME OF PROCEDURE PERFORMED: Right subclavian central venous line placement. SURGEON: Armond Yost MD. PREOPERATIVE DIAGNOSES: 1. Poor venous access. 2. Diabetic ketoacidosis. POSTOPERATIVE DIAGNOSES: 1. Poor venous access. 2. Diabetic ketoacidosis. DESCRIPTION OF PROCEDURE: This was done as an emergency as the patient needed IV access. The patient was placed in Trendelenburg, was already on the ventilator. The upper anterior chest and neck were prepped and draped in a sterile fashion. Local anesthesia was achieved with 1% lidocaine. We made a small stab incision below the clavicle. We then accessed the right subclavian vein on the first stick without difficulty. We passed the guidewire without difficulty. We then dilated the tract and passed the triple-lumen catheter to the extent that it would go. Blood was aspirated from each lumen. Then each lumen was flushed with saline. We secured the flange to the skin with nylon contained within the tray. A BioStep patch was placed at the exit site and a sterile OpSite dressing was applied. She tolerated it well. A chest x-ray was ordered. cc: Armond Yost MD
[2019-04-29 15:18] LABS: AGAP 10; BUN 13 mg/dL (8-22); CALCIUM 8.1 mg/dL (8.8-10.2); CHLORIDE 119 mmol/L (98-107); COSMO 294; CREATININE 0.8 mg/dL (0.5-0.9); ESTIMATED GFR > 60; GLUCOSE 133 mg/dL (70-104); MAGNESIUM 2.2 mg/dL (1.5-2.7); PHOSPHORUS 1.9 mg/dL (2.7-4.5); POTASSIUM 3.9 mmol/L (3.5-5.1); SODIUM 147 mmol/L (136-145); TCO2 18 mmol/L (25-35)
[2019-04-29] MEDS ORDERED: VANCOMYCIN 1 GM/NS 1 GM/250 ML IVPB IV SCH (17:00)
--- NOTE | 2019-04-29 18:23 | OPERATIVE NOTE ---
DATE OF CONSULTATION: 04/29/2019 NAME OF PROCEDURE: Lumbar puncture. INDICATIONS: Suspected meningitis. CONSENT: The patient's boyfriend was explained to about the procedure and risk on March on 04/28/2019. However, patient does not have any immediate relative available for this procedure, so two-physician consent has been signed. Procedure accompanied by the patient's nurse and occupational health nursing director. PROCEDURE DETAILS: A time-out was performed. Patient identification and procedure identification were performed. The patient was already intubated and patient was already intubated and he was helped to lie in the left lateral position. Using proper aseptic position, I washed my hands and then marked the area to perform the lumbar puncture. The area was cleaned with Betadine. First of all, dry gloves were worn and lumbar puncture kit was open. Then, the area was cleaned with Betadine and then a properly draped. Then 1% lidocaine was injected at the L4-L5 lumbar space. Then 1% lidocaine was injected. After that the lumbar puncture needle was inserted. An attempt was made to get inside the subarachnoid space, however, resistance was obtained. The lumbar puncture needle, after 2 or 3 sticks, was withdrawn. Hemodynamics were monitored during the procedure. There was a breach in the aseptic procedure as my glove touched the patient's gown, so the procedure was aborted. A new lumbar puncture kit was obtained. Again, sterile gloves were worn and the site was cleaned with Betadine and a lumbar puncture needle was introduced using a surface marker. I felt I reached the subarachnoid space, however, no fluid could not be could be obtained. So, after 2 or 3 sticks, it was decided to abort the procedure. I called Radiology to help with lumbar puncture tomorrow. ESTIMATED BLOOD LOSS: Less than 1 mL. The patient tolerated the procedure well. cc: Roldan Franks MD
[2019-04-29 18:29] LABS: BASO# 0.02 X1000 (0.0-0.2); BASO% 0.2 % (0.0-0.8); EOS# 0.23 X1000 (0.0-0.7); EOS% 2.8 % (0.0-10.0); HEMOGLOBIN 8.8 g/dL (12.0-16.0); LYMPH# 1.78 X1000 (1.2-3.4); LYMPH% 21.8 % (20.5-51.1); MCH 26.3 PG (27-31); MCHC 30.3 g/dL (33-37); MCV 86.6 FL (81-99); MONO% 7.3 % (1.7-9.3); MPV 10.5 FL (7.4-10.4); NEUT# 5.54 X1000 (1.4-6.5); NEUT% 67.9 % (42.2-75.2); PLT 249 X1000 (130-400); RBC 3.35 XMIL (4.2-5.4); RDW 13.4 % (11.5-14.5); WBC 8.17 X1000 (4.8-10.8)
[2019-04-29 18:45] LABS: AGAP 10; BUN 12 mg/dL (8-22); CALCIUM 7.7 mg/dL (8.8-10.2); CHLORIDE 115 mmol/L (98-107); COSMO 288; CREATININE 0.7 mg/dL (0.5-0.9); ESTIMATED GFR > 60; GLUCOSE 197 mg/dL (70-104); MAGNESIUM 2.2 mg/dL (1.5-2.7); PHOSPHORUS 2.2 mg/dL (2.7-4.5); POTASSIUM 3.8 mmol/L (3.5-5.1); SODIUM 142 mmol/L (136-145); TCO2 17 mmol/L (25-35)
[2019-04-29] MEDS: D5 1/2 NS 1,000 ML IV SCH ×2 (19:58→21:51)
--- NOTE | 2019-04-29 20:23 | PULMONOLOGY CONSULTATION ---
DATE: 04/29/2019 REQUESTING PROVIDER: CHINTAN Velasquez. REASON FOR CONSULTATION: Intubated. HISTORY OF PRESENT ILLNESS: This is a 24-year-old female with a medical history of diabetes mellitus type 1. She presented to the ER last night with altered mental status and losing bowel and bladder control. Initial workup in the ER revealed DKA, severe sepsis, malignant hypertension, and cocaine abuse. For H and P upon arrival to the ER, the patient became severely agitated. She was selectively orally intubated for airway protection. CT abdomen and pelvis with IV contrast revealed extensive pancreatic calcification indicating chronic pancreatitis, mild prominent left renal collecting system, mild thickening of the urinary bladder wall, and a 1.4 noncalcified nodule in the anterior left lower lobe at the base with mild subsegmental atelectasis at both lung bases. The patient apparently also has persistent fever to 104.7 p.o. yesterday afternoon from audit spec until yesterday afternoon. The patient currently is lying in bed, intubated and sedated with Diprivan drip at 55 mcg/kg per minute. She also midazolam drip at 0.04 mg/kg per hour and insulin drip at 12 units per hour. There is no family at the bedside. All other information is obtained from the E-chart. PAST MEDICAL HISTORY: Diabetes mellitus type 1, chronic pancreatitis, tobacco use, and cocaine use. PAST SURGICAL HISTORY: None. SOCIAL HISTORY: Patient apparently lives with her boyfriend. She does not have any immediate relative that she is in touch with. She is a daily smoker with less than half a pack per day. She drinks alcohol about once every other weekend. She has been intermittently snorting cocaine. FAMILY HISTORY: Positive for diabetes. ALLERGIES: No known drug allergies. REVIEW OF SYSTEMS: Unable to be obtained. PHYSICAL EXAMINATION: Vital Signs: Temperature 97.3, blood pressure 104/58, pulse 79, respiratory rate 16, oxygen saturation 100% on AC with FiO2 40%, tidal volume 450, spontaneous rate 16, and PEEP of 5. General: Intubated and sedated with Diprivan and midazolam. HEENT: Atraumatic, normocephalic. Trachea midline. ET tube in place. Mucosa pink and slightly dry. Pupils equal and reactive. Respiratory: Mechanical ventilator. Symmetrical excursion. Auscultation revealed clear to auscultation bilaterally. Cardiovascular: Regular rate and rhythm with S1, S2 appreciated. Gastrointestinal: Soft, nondistended. Normoactive bowel sounds in all 4 quadrants. Extremities: No pedal edema. No cyanosis. No clubbing. Dorsalis pedis 2+ bilaterally. Neurologic: Sedated. Unresponsive to verbal or physical stimuli. LAB DATA: White blood cell 8.17, hemoglobin 8.8, hematocrit 29, platelet 249,000. Sodium 146, potassium 4.5, chloride 117, carbon dioxide 17, BUN 17, creatinine 0.9, glucose 347. ABG, pH 7.24, pCO2 of 40, PO2 of 193, HCO3 17.4, base excess -9.7, oxyhemoglobin 97.8. IMAGING DATA: Chest x-ray today showed interval placement of right central line with no evidence of pneumothorax post placement. The lungs remain grossly clear with stable cardiac sihouette. ASSESSMENT: This is a 24-year-old female with a medical history of diabetes mellitus type 1, chronic pancreatitis, tobacco use, and cocaine use. She has been admitted to the ICU since yesterday with sepsis, with high fever, diabetes ketoacidosis, cocaine abuse, metabolic encephalopathy. 1. Selective intubation for airway protection secondary to metabolic encephalopathy. 2. Hypersomnia at representation, currently improving. 3. Gram-negative sepsis with unknown origin. 4. Diabetic ketoacidosis with coma. 5. Acute encephalopathy, likely toxic metabolic with cocaine abuse and suspected acute meningitis. 6. Cocaine abuse. PLAN: 1. Continue current treatment and supportive care per admitting and other teams on the case. 2. Follow up with ABG, CBC, BMP, blood cultures, sputum culture, urine culture and chest x-ray. 3. Ventilator setting. Check and titrate to patient's needs per clinical protocols with close monitoring. 4. Sedation continuous. Propofol and midazolam titrated to patient's needs per clinical protocol with close monitoring. 5. Antibiotics including cefepime and vancomycin and bronchodilators. 6. Tobacco cessation education when appropriate. 7. Appropriate DVT and GI prophylaxis. 8. Further recommendations pending hospital course. Total evaluation time in minutes: 35. Thank you for the courtesy of this consultation. Dictated by CHINTAN Irwin for Ankur Hill MD cc: CHINTAN Irwin MD [facility]
[2019-04-29] MEDS: VERSED 100 MG in NS 80 ML IV SCH (21:28)
[2019-04-29 23:58] LABS: ESTIMATED GFR > 60
[2019-04-29 23:59] LABS: AGAP 12; BUN 10 mg/dL (8-22); CALCIUM 7.9 mg/dL (8.8-10.2); CHLORIDE 114 mmol/L (98-107); COSMO 286; CREATININE 0.8 mg/dL (0.5-0.9); GLUCOSE 197 mg/dL (70-104); MAGNESIUM 2.4 mg/dL (1.5-2.7); PHOSPHORUS 2.7 mg/dL (2.7-4.5); POTASSIUM 4.2 mmol/L (3.5-5.1); SODIUM 141 mmol/L (136-145); TCO2 15 mmol/L (25-35)
[2019-04-30] MEDS: POTASSIUM CHLORIDE 20 MEQ/SWI 20 MEQ/100 ML IVPB IV PRN ×2 (00:52→19:19)
[2019-04-30] MEDS: DIPRIVAN 1% 1,000 MG/100 ML BOTTLE IV SCH ×4 (02:12→22:17)
[2019-04-30] MEDS: MAXIPIME 2 GM/NS 2 GM/100 ML IVPB IV SCH ×2 (02:18→15:30)
[2019-04-30] MEDS: DUONEB (A & A) INH PRN ×5 (03:05→20:00)
[2019-04-30 04:48] LABS: BASO# 0.01 X1000 (0.0-0.2); BASO% 0.1 % (0.0-0.8); EOS# 0.27 X1000 (0.0-0.7); EOS% 3.3 % (0.0-10.0); HEMOGLOBIN 8.7 g/dL (12.0-16.0); IMM GRAN# 0.03 X1000 (0.0-0.04); IMM GRAN% 0.4 % (0.0-0.5); LYMPH# 1.79 X1000 (1.2-3.4); LYMPH% 22.1 % (20.5-51.1); MCH 25.9 PG (27-31); MCV 86.3 FL (81-99); MONO# 0.71 X1000 (0.11-0.59); MONO% 8.8 % (1.7-9.3); MPV 11.3 FL (7.4-10.4); NEUT% 65.3 % (42.2-75.2); PLT 240 X1000 (130-400); RBC 3.36 XMIL (4.2-5.4); RDW 13.5 % (11.5-14.5); WBC 8.11 X1000 (4.8-10.8)
[2019-04-30 04:50] LABS: ALLEN TEST YES; BE -7.7 mmoll (-3.0-3.0); BLOOD TYPE ARTERIAL; METHB 0.6 % (0.0-1.5); O2(CT) 11.8 mL/dL (15.0-23.0); O2HB 97.4 % (95.0-99.0); PCO2(98.6) 32 mmHg (35-45); PO2(98.6) 178 mmHg (60-100); SAMPLE BLOOD; SAO2 99.8 % (95.0-100.0); SRATE 16 BPM; THB 8.3 g/dL (11.5-17.4); TVOL 450 mL; pH(98.6) 7.34 (7.35-7.45)
[2019-04-30 04:51] LABS: MODALITY VENTILATOR
[2019-04-30] MEDS ORDERED: VANCOMYCIN 1,250 MG in NS 250 ML IV SCH (05:00)
[2019-04-30 05:11] LABS: AGAP 10; ALB/GLOB RATIO 0.9; ALBUMIN 2.6 g/dL (3.5-5.0); ALKALINE PHOSPHATASE 70 U/L (32-104); BUN 8 mg/dL (8-22); CALCIUM 7.5 mg/dL (8.8-10.2); CHLORIDE 115 mmol/L (98-107); COSMO 289; CREATININE 0.7 mg/dL (0.5-0.9); ESTIMATED GFR > 60; GLUCOSE 207 mg/dL (70-104); GOT 15 U/L (10-30); GPT 9 U/L (10-36); PHOSPHORUS 2.5 mg/dL (2.7-4.5); POTASSIUM 3.6 mmol/L (3.5-5.1); SODIUM 143 mmol/L (136-145); TCO2 18 mmol/L (25-35); TOTAL BILIRUBIN < 0.15 mg/dL (0.20-1.00); TOTAL PROTEIN 5.4 g/dL (6.3-8.3)
[2019-04-30] MEDS: PROTONIX IV SCH (06:04)
[2019-04-30] MEDS: D5 1/2 NS 1,000 ML IV SCH ×3 (06:07→17:45)
--- NOTE | 2019-04-30 06:31 | Diag Imaging Result Doc PS360 ---
EXAM: CHEST-1 VIEW HISTORY: SOB TECHNIQUE: Single view COMPARISON: 04/29/2019 FINDINGS: No change in the right subclavian line, endotracheal tube or nasogastric tube. The lungs are well expanded. No cardiomegaly. No pulmonary edema. No infiltrates on the current exam. No pleural effusions identified. IMPRESSION: Interval improvement Electronically signed by Suleman García 04/30/2019 6:29 AM
[2019-04-30 10:17] LABS: AGAP 12; BUN 6 mg/dL (8-22); CALCIUM 7.9 mg/dL (8.8-10.2); CHLORIDE 115 mmol/L (98-107); COSMO 289; CREATININE 0.6 mg/dL (0.5-0.9); ESTIMATED GFR > 60; GLUCOSE 209 mg/dL (70-104); MAGNESIUM 1.7 mg/dL (1.5-2.7); PHOSPHORUS 2.2 mg/dL (2.7-4.5); POTASSIUM 3.2 mmol/L (3.5-5.1); SODIUM 143 mmol/L (136-145); TCO2 16 mmol/L (25-35)
[2019-04-30] MEDS: 1/2 NS 1,000 ML IV SCH ×2 (10:29→22:10)
[2019-04-30] MEDS: MAGNESIUM SULFATE 2 GM/S.W.I. 2 GM/50 ML IVPB IV PRN (10:55)
--- NOTE | 2019-04-30 12:00 | PROGRESS NOTE ---
DATE: 04/30/2019 INTERVAL HISTORY: No acute overnight event. SUBJECTIVE: Ms. Cintron is sedated and on a ventilator. Does not appear in any acute distress. VITALS: Temperature of 98.5 degrees, pulse 96, respiratory rate 16, blood pressure 137/78, saturating 100% on mechanical ventilation. Input and output 4.5 liters so far. PHYSICAL EXAMINATION: General: Not in acute distress. HEENT: Pupils are briskly reacting to light. Oral cavity is moist. Lungs: Air entry bilaterally equal. No wheeze or crackles. Heart: S1 normal. No murmur, rub or gallop. Abdomen: Soft, nontender. Extremities: No lower extremity edema. Lines/tubes: She has urine catheter. Central line and endotracheal tube. LABS: Suggestive of WBC of 8000, hemoglobin 8.7, platelets 240. ABG suggestive of pH of 7.34. Lactate of 2.1. She does have normal kidney function. BUN is 8, creatinine 0.7. MICROBIOLOGY: Repeat blood cultures have been drawn. IMAGING: Chest x-ray today morning suggests interval improvement. ASSESSMENT AND PLAN: 1. Klebsiella pneumoniae sepsis. The source of this is unclear. Acute meningitis is possible considering she has had headache and neck pain since 2 days prior to current presentation. I will continue her on intravenous antibiotics,including vancomycin and cefepime, and I will discontinue vancomycin when lumbar puncture has been performed. Neurology team has been consulted. 2. Hypothermia on presentation due to sepsis due to meningitis versus others, diabetic ketoacidosis, serotonin syndrome with concomitant use of cocaine, now improved. Continue intravenous acetaminophen as needed. 3. Diabetic ketoacidosis with coma, now improved. Her anion gap has closed. Continue intravenous D5 containing intravenous fluids and intravenous insulin. 4. Acute encephalopathy, likely toxic metabolic in nature. 5. Respiratory failure, status post intubation for airway protection. 6. Cocaine use disorder. 7. Acute kidney injury. Lactic acidosis has resolved. 8. Gastrointestinal prophylaxis on Pantoprazole, enoxaparin for deep vein thrombosis prophylaxis. DISPOSITION: Continue to monitor patient in ICU. TIME SPENT: I appreciate Pulmonology recommendation about ventilator management. I will consult Neurology for further management and help with acute meningitis, as well as possible need for lumbar puncture. Plan of care discussed with nursing team. So far, we do not have any family contact information. cc: Roldan Franks MD [facility]ITAL[facility]
[2019-04-30 12:57] LABS: AGAP 10; BUN 5 mg/dL (8-22); CALCIUM 7.4 mg/dL (8.8-10.2); CHLORIDE 116 mmol/L (98-107); COSMO 284; CREATININE 0.6 mg/dL (0.5-0.9); ESTIMATED GFR > 60; GLUCOSE 161 mg/dL (70-104); MAGNESIUM 2.2 mg/dL (1.5-2.7); PHOSPHORUS 2.8 mg/dL (2.7-4.5); POTASSIUM 3.7 mmol/L (3.5-5.1); SODIUM 142 mmol/L (136-145); TCO2 16 mmol/L (25-35)
[2019-04-30 16:43] LABS: AGAP 13; BUN 5 mg/dL (8-22); CALCIUM 8.2 mg/dL (8.8-10.2); CHLORIDE 118 mmol/L (98-107); COSMO 294; CREATININE 0.7 mg/dL (0.5-0.9); ESTIMATED GFR > 60; GLUCOSE 170 mg/dL (70-104); MAGNESIUM 2.6 mg/dL (1.5-2.7); PHOSPHORUS 2.6 mg/dL (2.7-4.5); POTASSIUM 4.2 mmol/L (3.5-5.1); SODIUM 147 mmol/L (136-145); TCO2 16 mmol/L (25-35)
[2019-04-30] MEDS: LOVENOX SUBQ SCH (17:07)
[2019-04-30] MEDS: VANCOMYCIN 1,250 MG in NS 250 ML IV SCH (17:07)
[2019-04-30] MEDS: MORPHINE IV PRN ×2 (17:28→22:17)
--- NOTE | 2019-04-30 18:15 | PROVIDER PROGRESS NOTE ---
Progress Note Dr. Hill Progress Note/Pulmonary and or critical care We appreciated progress of care, Complications, change in diagnosis, and instructions to patient. Subjective: We note the level of consciousness, bed (chair) position, family presence (if any), level of lethargy, feeling of symptoms, and changes from baseline condition/symptom. The patient is intubated and sedated with Diprivan and Midazolam. No family at the bedside. Objective: Vital Signs: We reviewed EMR current values for Pulse rate, Blood pressure, Pulse rate, respiratory rate and Pulse oximetry. Also noted other values and trends if present (e.g. I/O, CVP). T 97.8 (no fever in last 24 hours), AL 92, RR 16, BP 117/78 and SaO2 98% on AC 16, 40%, 450, 5. I/O +2853 ml Physical Examination: General: Intubated. Lying in bed with no acute distress noted. HEENT: Normocephalic. Trachea midline. ET tube in place. Chest: Mechanically ventilated. Symmetrical excursion. Clear to auscultation bilaterally. CVS: Regular rate and rhythm with S1 and S2 appreciated. Abdomen: Soft. Nontender. Nondistended. Normoactive bowel sounds in all 4 quadrants noted. Extremities: No pedal edema. No cyanosis. No clubbing. Neuro: Sedated. Labs and Radiology: Reviewed available labs and radiology values available at time of EMR review. Laboratory Results 04/29/19 04/29/19 04/29/19 18:20 18:20 19:14 WBC 8.17 RBC 3.35 L Hgb 8.8 L Hct 29.0 L MCV 86.6 MCH 26.3 L MCHC 30.3 L RDW Std Deviation 13.4 Plt Count 249 MPV 10.5 H Immature Gran % (Auto) 0.0 Neut % (Auto) 67.9 Lymph % (Auto) 21.8 Metcalfe % (Auto) 7.3 Eos % (Auto) 2.8 Baso % (Auto) 0.2 Immature Gran # (Auto) 0.00 Neut # (Auto) 5.54 Lymph # (Auto) 1.78 Metcalfe # (Auto) 0.60 H Eos # (Auto) 0.23 Baso # (Auto) 0.02 Specimen Type Sample Site pH pCO2 pO2 HCO3 Base Excess Oxyhemoglobin ABG O2 Sat (Calculated) ABG O2 Saturation ABG Carboxyhemoglobin ABG Methemoglobin Rj Test A-a O2 Difference Total Hemoglobin Lactate Blood Gas Modality Spontaneous Rate FiO2 % Tidal Volume PEEP Sodium 142 Potassium 3.8 Chloride 115 H Carbon Dioxide 17 L Anion Gap 10 BUN 12 Creatinine 0.7 Estimated GFR/1.73 m2 > 60 BUN/Creatinine Ratio 17 Glucose 197 H POC Glucose 174 H Calculated Osmolality 288 Calcium 7.7 L Phosphorus 2.2 L Magnesium 2.2 Total Bilirubin AST ALT Alkaline Phosphatase Total Protein Albumin Globulin Albumin/Globulin Ratio 04/29/19 04/29/19 04/29/19 21:03 22:35 23:02 WBC RBC Hgb Hct MCV MCH MCHC RDW Std Deviation Plt Count MPV Immature Gran % (Auto) Neut % (Auto) Lymph % (Auto) Metcalfe % (Auto) Eos % (Auto) Baso % (Auto) Immature Gran # (Auto) Neut # (Auto) Lymph # (Auto) Metcalfe # (Auto) Eos # (Auto) Baso # (Auto) Specimen Type Sample Site pH pCO2 pO2 HCO3 Base Excess Oxyhemoglobin ABG O2 Sat (Calculated) ABG O2 Saturation ABG Carboxyhemoglobin ABG Methemoglobin Rj Test A-a O2 Difference Total Hemoglobin Lactate Blood Gas Modality Spontaneous Rate FiO2 % Tidal Volume PEEP Sodium 141 Potassium 4.2 Chloride 114 H Carbon Dioxide 15 L Anion Gap 12 BUN 10 Creatinine 0.8 Estimated GFR/1.73 m2 > 60 BUN/Creatinine Ratio 13 Glucose 197 H POC Glucose 143 H 183 H Calculated Osmolality 286 Calcium 7.9 L Phosphorus 2.7 Magnesium 2.4 Total Bilirubin AST ALT Alkaline Phosphatase Total Protein Albumin Globulin Albumin/Globulin Ratio 04/30/19 04/30/19 04/30/19 00:55 02:10 04:25 WBC RBC Hgb Hct MCV MCH MCHC RDW Std Deviation Plt Count MPV Immature Gran % (Auto) Neut % (Auto) Lymph % (Auto) Metcalfe % (Auto) Eos % (Auto) Baso % (Auto) Immature Gran # (Auto) Neut # (Auto) Lymph # (Auto) Metcalfe # (Auto) Eos # (Auto) Baso # (Auto) Specimen Type Sample Site pH pCO2 pO2 HCO3 Base Excess Oxyhemoglobin ABG O2 Sat (Calculated) ABG O2 Saturation ABG Carboxyhemoglobin ABG Methemoglobin Rj Test A-a O2 Difference Total Hemoglobin Lactate Blood Gas Modality Spontaneous Rate FiO2 % Tidal Volume PEEP Sodium Potassium Chloride Carbon Dioxide Anion Gap BUN Creatinine Estimated GFR/1.73 m2 BUN/Creatinine Ratio Glucose POC Glucose 215 H 179 H 212 H Calculated Osmolality Calcium Phosphorus Magnesium Total Bilirubin AST ALT Alkaline Phosphatase Total Protein Albumin Globulin Albumin/Globulin Ratio 04/30/19 04/30/19 04/30/19 04:30 04:30 04:39 WBC 8.11 RBC 3.36 L Hgb 8.7 L Hct 29.0 L MCV 86.3 MCH 25.9 L MCHC 30.0 L RDW Std Deviation 13.5 Plt Count 240 MPV 11.3 H Immature Gran % (Auto) 0.4 Neut % (Auto) 65.3 Lymph % (Auto) 22.1 Metcalfe % (Auto) 8.8 Eos % (Auto) 3.3 Baso % (Auto) 0.1 Immature Gran # (Auto) 0.03 Neut # (Auto) 5.30 Lymph # (Auto) 1.79 Metcalfe # (Auto) 0.71 H Eos # (Auto) 0.27 Baso # (Auto) 0.01 Specimen Type ARTERIAL Sample Site L RADIAL pH 7.34 L pCO2 32 L pO2 178 H HCO3 19.0 L Base Excess -7.7 L Oxyhemoglobin 97.4 ABG O2 Sat (Calculated) 11.8 L ABG O2 Saturation 99.8 ABG Carboxyhemoglobin 1.80 ABG Methemoglobin 0.6 Rj Test YES A-a O2 Difference 67.0 Total Hemoglobin 8.3 L Lactate 2.10 Blood Gas Modality VENTILATOR Spontaneous Rate 16 FiO2 % 40.0 Tidal Volume 450 PEEP 5.0 Sodium 143 Potassium 3.6 Chloride 115 H Carbon Dioxide 18 L Anion Gap 10 BUN 8 Creatinine 0.7 Estimated GFR/1.73 m2 > 60 BUN/Creatinine Ratio 11 Glucose 207 H POC Glucose Calculated Osmolality 289 Calcium 7.5 L Phosphorus 2.5 L Magnesium 2.0 Total Bilirubin < 0.15 L AST 15 ALT 9 L Alkaline Phosphatase 70 Total Protein 5.4 L Albumin 2.6 L Globulin 2.8 Albumin/Globulin Ratio 0.9 04/30/19 04/30/19 04/30/19 05:12 07:31 09:02 WBC RBC Hgb Hct MCV MCH MCHC RDW Std Deviation Plt Count MPV Immature Gran % (Auto) Neut % (Auto) Lymph % (Auto) Metcalfe % (Auto) Eos % (Auto) Baso % (Auto) Immature Gran # (Auto) Neut # (Auto) Lymph # (Auto) Metcalfe # (Auto) Eos # (Auto) Baso # (Auto) Specimen Type Sample Site pH pCO2 pO2 HCO3 Base Excess Oxyhemoglobin ABG O2 Sat (Calculated) ABG O2 Saturation ABG Carboxyhemoglobin ABG Methemoglobin Rj Test A-a O2 Difference Total Hemoglobin Lactate Blood Gas Modality Spontaneous Rate FiO2 % Tidal Volume PEEP Sodium Potassium Chloride Carbon Dioxide Anion Gap BUN Creatinine Estimated GFR/1.73 m2 BUN/Creatinine Ratio Glucose POC Glucose 186 H 155 H 233 H D Calculated Osmolality Calcium Phosphorus Magnesium Total Bilirubin AST ALT Alkaline Phosphatase Total Protein Albumin Globulin Albumin/Globulin Ratio 04/30/19 04/30/19 04/30/19 09:26 11:04 11:41 WBC RBC Hgb Hct MCV MCH MCHC RDW Std Deviation Plt Count MPV Immature Gran % (Auto) Neut % (Auto) Lymph % (Auto) Metcalfe % (Auto) Eos % (Auto) Baso % (Auto) Immature Gran # (Auto) Neut # (Auto) Lymph # (Auto) Metcalfe # (Auto) Eos # (Auto) Baso # (Auto) Specimen Type Sample Site pH pCO2 pO2 HCO3 Base Excess Oxyhemoglobin ABG O2 Sat (Calculated) ABG O2 Saturation ABG Carboxyhemoglobin ABG Methemoglobin Rj Test A-a O2 Difference Total Hemoglobin Lactate Blood Gas Modality Spontaneous Rate FiO2 % Tidal Volume PEEP Sodium 143 142 Potassium 3.2 L 3.7 D Chloride 115 H 116 H Carbon Dioxide 16 L 16 L Anion Gap 12 10 BUN 6 L 5 L Creatinine 0.6 0.6 Estimated GFR/1.73 m2 > 60 > 60 BUN/Creatinine Ratio 10 8 Glucose 209 H 161 H POC Glucose 149 H Calculated Osmolality 289 284 Calcium 7.9 L 7.4 L Phosphorus 2.2 L 2.8 Magnesium 1.7 2.2 Total Bilirubin AST ALT Alkaline Phosphatase Total Protein Albumin Globulin Albumin/Globulin Ratio 04/30/19 04/30/19 04/30/19 13:01 15:10 15:14 WBC RBC Hgb Hct MCV MCH MCHC RDW Std Deviation Plt Count MPV Immature Gran % (Auto) Neut % (Auto) Lymph % (Auto) Metcalfe % (Auto) Eos % (Auto) Baso % (Auto) Immature Gran # (Auto) Neut # (Auto) Lymph # (Auto) Metcalfe # (Auto) Eos # (Auto) Baso # (Auto) Specimen Type Sample Site pH pCO2 pO2 HCO3 Base Excess Oxyhemoglobin ABG O2 Sat (Calculated) ABG O2 Saturation ABG Carboxyhemoglobin ABG Methemoglobin Rj Test A-a O2 Difference Total Hemoglobin Lactate Blood Gas Modality Spontaneous Rate FiO2 % Tidal Volume PEEP Sodium 147 H Potassium 4.2 Chloride 118 H Carbon Dioxide 16 L Anion Gap 13 BUN 5 L Creatinine 0.7 Estimated GFR/1.73 m2 > 60 BUN/Creatinine Ratio 7 Glucose 170 H POC Glucose 172 H 156 H Calculated Osmolality 294 Calcium 8.2 L Phosphorus 2.6 L Magnesium 2.6 Total Bilirubin AST ALT Alkaline Phosphatase Total Protein Albumin Globulin Albumin/Globulin Ratio 04/30/19 04/30/19 16:55 17:31 WBC RBC Hgb Hct MCV MCH MCHC RDW Std Deviation Plt Count MPV Immature Gran % (Auto) Neut % (Auto) Lymph % (Auto) Metcalfe % (Auto) Eos % (Auto) Baso % (Auto) Immature Gran # (Auto) Neut # (Auto) Lymph # (Auto) Metcalfe # (Auto) Eos # (Auto) Baso # (Auto) Specimen Type Sample Site pH pCO2 pO2 HCO3 Base Excess Oxyhemoglobin ABG O2 Sat (Calculated) ABG O2 Saturation ABG Carboxyhemoglobin ABG Methemoglobin Rj Test A-a O2 Difference Total Hemoglobin Lactate Blood Gas Modality Spontaneous Rate FiO2 % Tidal Volume PEEP Sodium Potassium 3.7 Chloride Carbon Dioxide Anion Gap BUN Creatinine Estimated GFR/1.73 m2 BUN/Creatinine Ratio Glucose POC Glucose 149 H Calculated Osmolality Calcium Phosphorus Magnesium Total Bilirubin AST ALT Alkaline Phosphatase Total Protein Albumin Globulin Albumin/Globulin Ratio Assessment: Acute respiratory failure. Selective intubated on 04/28/19 for airway protection secondary to metabolic encephalopathy. DKA. Gram-negative sepsis. S/P lumbar puncture today. Acute encephalopathy. Cocaine abuse. Plan: Continue current treatment and supportive care per admitting and other teams on the case. Ventilation checked and titrated to patients needs per clinical protocol with closely monitoring. Sedation (Propofol and Midazolam) titrated to patients needs per clinical protocol with closely monitoring. Antibiotics (Cefepime and vancomycin) and bronchodilators. Tobacco cessation education when appropriate. Appropriate DVT and GI prophylaxis Input was appreciated from Admitting MD and other teams on the case. Evaluation time in minutes: 33 minutes.
[2019-04-30 20:43] LABS: AGAP 10; BUN 5 mg/dL (8-22); CALCIUM 7.5 mg/dL (8.8-10.2); CHLORIDE 116 mmol/L (98-107); COSMO 284; CREATININE 0.6 mg/dL (0.5-0.9); ESTIMATED GFR > 60; GLUCOSE 137 mg/dL (70-104); MAGNESIUM 2.2 mg/dL (1.5-2.7); PHOSPHORUS 2.9 mg/dL (2.7-4.5); SODIUM 143 mmol/L (136-145); TCO2 17 mmol/L (25-35)
[2019-04-30] MEDS: HUMALOG SUBQ SCH (21:16)
[2019-04-30] MEDS: LANTUS INSULIN SUBQ SCH (21:16)
--- NOTE | 2019-04-30 21:33 | NEUROLOGY CONSULTATION ---
DATE: 04/30/2019 REASON FOR CONSULT: Question of meningitis. HISTORY OF PRESENT ILLNESS: This is a 24-year-old, female admitted 04/28/2019 with altered mental status. History is from chart review as the patient cannot provide history and no family currently available. Apparently, the patient was in her usual state until she left to go to a friend's house. Later, the friend phoned the patient's boyfriend stating that she was acting unusually. The patient was found poorly responsive, clothes untied, and lying in feces. In the emergency room, she was quite agitated and confused. She was not responding to multiple doses of sedating type medications. Blood glucose was above 700. White count was 14. She had acute kidney injury. Her hemoglobin A1c was above 13. Calcium and phosphorus and sodium were low. Plasma lactate was high. Her toxicology was positive for cocaine and she had a fever of 102.9 degrees, and that went as high as 104.7 degrees. The patient was ultimately intubated for airway protection and to obtain a head CT which was negative for acute findings. She was treated for DKA, Klebsiella pneumoniae sepsis. Apparently, there was report of headache and sore throat and stiff neck for a couple of days before presentation. PAST MEDICAL HISTORY: 1. Type 1 diabetes. 2. Chronic pancreatitis. SOCIAL HISTORY: Current smoker. Drinks alcohol on the weekend. Uses cocaine and has positive drug screen. Report from the nurse is that she is estranged from her immediate family for uncertain reasons. FAMILY HISTORY: Positive for diabetes. ALLERGIES: No known drug allergies listed. CURRENT MEDICATIONS: Reviewed in the chart and include: 1. Cefepime. 2. Vancomycin. 3. Midazolam. 4. Propofol. REVIEW OF SYSTEMS: Unable to obtain due to patient factors. PHYSICAL EXAMINATION: Vital Signs: Currently afebrile for the last 2 days. Temperature was T max 104.7 degrees early in admission. Blood pressure 219/187 on arrival, then 143/92 an hour later, current 125/76. Pulse 90s to 100s. She is on the ventilator. General: Ms. Cintron is supine in bed on the ventilator. When watching from a distance, her eyes are open and she blinks intermittently. When I approach her, she opens her eyes again to loud voice and appears to focus on my face briefly. She opens her eyes then to command. She follows some simple commands. She needs re-alerting to maintain alertness. She has sedation going. She was able to follow some commands during strength testing as well. Right pupil is irregular and I do not see definite reaction. Left pupil is more regular and I saw very subtle reaction that was sluggish to bright light. Gaze was conjugate. There was some horizontal eye movement with passive head turning. There was not consistently blink to threat. Corneal reflexes were present bilaterally. She attempted to smile on command and that appeared to be symmetric, though viewing is limited by her being on the ventilator. Tone is equal in the limbs. I did not find definite focal findings with regard to power in the limbs. She responds to mild noxious stimuli in all extremities equally. Reflexes at the ankles were trace. No clonus. Plantar responses downgoing bilaterally. Reflexes at the knees 1+, wrists trace to 1+. DIAGNOSTICS: Head CT, 04/28/2019: No acute findings. Head CT, 04/29/2019 at 2252: No acute findings. LABS: Reviewed in the chart and as per above. Calcium and phosphorus low as well. Blood cultures growing Klebsiella pneumoniae. Flu screen is negative. ASSESSMENT AND PLAN: Global encephalopathy without definite focal feature. Reported relative abrupt onset 2 days ago before admission. I believe she was initially less responsive, followed by quite agitated and not responding to multiple doses of sedatives in the emergency department. Toxicology is positive for cocaine. Etiology likely multifactorial with sepsis, cocaine and potentially additional drug intoxication being prominent potential etiologies. I guess meningitis could be a consideration and a bedside lumbar puncture yesterday was unsuccessful. She is on antibiotics. If she cannot go to radiology for LP and another bedside attempt at lumbar puncture is wanted, then I would be happy to attempt that. I will also order a routine EEG. If her mental status does not clear, then I would also recommend MRI of the brain once she is able to go for that. Thank you for the consultation. cc: Macie Jalloh MD [facility]
[2019-04-30 23:23] LABS: AGAP 10; BUN 4 mg/dL (8-22); CALCIUM 7.7 mg/dL (8.8-10.2); CHLORIDE 114 mmol/L (98-107); COSMO 284; CREATININE 0.6 mg/dL (0.5-0.9); ESTIMATED GFR > 60; GLUCOSE 245 mg/dL (70-104); MAGNESIUM 2.1 mg/dL (1.5-2.7); PHOSPHORUS 2.9 mg/dL (2.7-4.5); POTASSIUM 4.6 mmol/L (3.5-5.1); SODIUM 140 mmol/L (136-145); TCO2 16 mmol/L (25-35)
[2019-05-01] MEDS: HUMALOG SUBQ SCH ×6 (00:52→20:11)
[2019-05-01] MEDS: MAXIPIME 2 GM/NS 2 GM/100 ML IVPB IV SCH (03:03)
[2019-05-01] MEDS: DIPRIVAN 1% 1,000 MG/100 ML BOTTLE IV SCH (03:08)
[2019-05-01] MEDS: VERSED 100 MG in NS 80 ML IV SCH (03:35)
[2019-05-01] MEDS: VANCOMYCIN 1,250 MG in NS 250 ML IV SCH (04:01)
[2019-05-01 05:35] LABS: ALLEN TEST YES; BE -5.1 mmoll (-3.0-3.0); BLOOD TYPE ARTERIAL; PCO2(98.6) 31 mmHg (35-45); PO2(98.6) 192 mmHg (60-100); SAMPLE BLOOD; SRATE 16 BPM; TVOL 450 mL; pH(98.6) 7.39 (7.35-7.45)
[2019-05-01 05:36] LABS: MODALITY VENTILATOR
[2019-05-01 05:54] LABS: BASO# 0.01 X1000 (0.0-0.2); BASO% 0.2 % (0.0-0.8); EOS% 4.5 % (0.0-10.0); HEMATOCRIT 27.1 % (37.0-47.0); HEMOGLOBIN 8.1 g/dL (12.0-16.0); LYMPH# 1.78 X1000 (1.2-3.4); MCH 25.8 PG (27-31); MCHC 29.9 g/dL (33-37); MCV 86.3 FL (81-99); MONO# 0.55 X1000 (0.11-0.59); MONO% 8.3 % (1.7-9.3); MPV 11.9 FL (7.4-10.4); NEUT# 3.96 X1000 (1.4-6.5); PLT 215 X1000 (130-400); RBC 3.14 XMIL (4.2-5.4); RDW 13.7 % (11.5-14.5)
[2019-05-01] MEDS: MORPHINE IV PRN ×3 (05:59→22:07)
[2019-05-01] MEDS: PROTONIX IV SCH (06:02)
[2019-05-01 06:17] LABS: AGAP 8; ALBUMIN 2.6 g/dL (3.5-5.0); ALKALINE PHOSPHATASE 73 U/L (32-104); BUN 5 mg/dL (8-22); CALCIUM 7.5 mg/dL (8.8-10.2); CHLORIDE 115 mmol/L (98-107); COSMO 284; CREATININE 0.6 mg/dL (0.5-0.9); ESTIMATED GFR > 60; GLUCOSE 167 mg/dL (70-104); GOT 10 U/L (10-30); GPT 8 U/L (10-36); PHOSPHORUS 1.9 mg/dL (2.7-4.5); SODIUM 142 mmol/L (136-145); TCO2 19 mmol/L (25-35); TOTAL PROTEIN 5.1 g/dL (6.3-8.3)
[2019-05-01 06:29] LABS: TOTAL BILIRUBIN < 0.15 mg/dL (0.20-1.00)
[2019-05-01] MEDS: D5 1/2 NS 1,000 ML IV SCH ×2 (07:17→07:31)
[2019-05-01] MEDS: ROCEPHIN 2 GM in NS 50 ML IV SCH ×2 (07:31→20:12)
--- NOTE | 2019-05-01 07:42 | Diag Imaging Result Doc PS360 ---
EXAM: CHEST-1 VIEW INDICATION: SOB TECHNIQUE: One view COMPARISON: 04/30/2019 FINDINGS: Support tubes and lines are in stable positions. The lungs remain grossly clear. No new consolidation is identified. Cardiac silhouette is stable. IMPRESSION: Stable chest. Electronically signed by Wisam Dooley 05/01/2019 7:40 AM
--- NOTE | 2019-05-01 09:31 | INFECTIOUS DISEASE CONSULT REP ---
DATE: 05/01/2019 CONCLUSION: The patient has a Klebsiella bacteremia. I think this originated from illicit drug use. At this time, I doubt that she has meningitis. RECOMMENDATIONS: I have switched the patient from cefepime to Rocephin. DISCUSSION: The patient was unable provide a history, and no family member is present. According to the information in the computer, the patient had an altered mental status, and she was brought to the hospital. She was febrile. Her CBC shows a white count of 6600, hemoglobin 8.1, platelet count 215,000. Blood gases show a pH of 7.39, a PO2 of 192, and a pCO2 of 31. The patient's creatinine is 0.6. GFR is greater than 60. Liver function studies are normal. Amylase and lipase are within normal limits. Urinalysis was negative for white cells and bacteria. Drug screen was positive for cocaine. Urine culture was sterile. Blood cultures grew Klebsiella. Repeat blood cultures are pending. The stool for Clostridium difficile is negative. The influenza screen is negative. Stool culture is negative. Chest x-ray is clear. PAST MEDICAL HISTORY: Positive for diabetes mellitus, chronic pancreatitis, illicit drug use. PAST SURGICAL HISTORY: None. SOCIAL HISTORY: The patient smokes cigarettes, drinks alcoholic beverages, and uses illicit drugs, namely cocaine. FAMILY HISTORY: Positive for diabetes. ALLERGIES: No known drug allergies. HOME MEDICATIONS: Positive for insulin. REVIEW OF SYSTEMS: Unable to be obtained. PHYSICAL EXAMINATION: Vital Signs: Temperature is 98 degrees, pulse 88, respirations 19, blood pressure 126/94. The patient is 5 feet 4 inches tall, weighs 131 pounds. General: This is a healthy-appearing, young female. She is intubated and has a decreased level of consciousness. HEENT: No drainage noted from the nose or ears. She has an orotracheal tube in place. Neck: No meningismus. Lungs: Clear to auscultation. Cardiovascular: Heart rate is regular. Abdomen: Soft and nontender. Neurologic: The patient appears to be in a delirium. She did move her extremities to verbal request. There is no tremor. The patient did not answer any questions by shaking her head yes or no. Integument: No rash noted. Thorax: Patient has a right subclavian catheter. There is no erythema or bleeding at the catheter site. Thank you for the consult. cc: Chas Watkins MD MTDD
[2019-05-01] MEDS: DUONEB (A & A) INH SCH ×4 (11:58→21:40)
[2019-05-01] MEDS: 1/2 NS 1,000 ML IV SCH (12:14)
[2019-05-01] MEDS: ZOFRAN IV PRN ×2 (13:11→18:31)
[2019-05-01 13:22] LABS: ALLEN TEST YES; BE -3.9 mmoll (-3.0-3.0); BLOOD TYPE ARTERIAL; HCO3-(ACT) 21.9 mmoll (20.0-26.0); METHB 0.7 % (0.0-1.5); O2(CT) 14.7 mL/dL (15.0-23.0); PCO2(98.6) 35 mmHg (35-45); PO2(98.6) 165 mmHg (60-100); SAMPLE BLOOD; SAO2 99.8 % (95.0-100.0); THB 10.4 g/dL (11.5-17.4); pH(98.6) 7.38 (7.35-7.45)
[2019-05-01 13:23] LABS: MODALITY VENTILATOR
[2019-05-01] MEDS ORDERED: ATIVAN IV ONE (14:00)
--- NOTE | 2019-05-01 15:00 | NEUROLOGY PROGRESS NOTE ---
DATE: 05/01/2019 SUBJECTIVE: No major overnight events. The patient is on spontaneous breathing trial. OBJECTIVE: She has been afebrile for the last 3 days. Blood pressure 126/94, pulse 80s. Ms. [employer] is supine in bed with head of bed elevated. She is on the ventilator on spontaneous breathing trial. She is awake and alert. She tracks. She follows some simple commands. She becomes agitated during the encounter, and begins kicking her legs and pulling at tubes. There is not obvious focal deficit of the limbs. Right pupil is irregular and nonreactive, left pupil approximately 3.5 mm, and I do not see definite reaction. She follows my hand, and ocular movements appear full. She blinks to threat. Face appears symmetric with equal grimace. LABORATORY DATA: Normal white count, sodium, BUN, creatinine. Blood sugars have been elevated. Calcium 7.5. Phosphorus 1.9. ASSESSMENT AND PLAN: Global encephalopathy without definite focal feature. Likely multifactorial. Mental status seems improved even more today compared to yesterday, so she continues to make steady improvements. This is reassuring. Electroencephalogram has been done, and I will review that. Otherwise I would recommend continuing to treat her medically, and continue to follow her mental status clinically. No further suggestions to add to my note from yesterday. cc: Macie Jalloh MD
[2019-05-01] MEDS: COMPAZINE IV PRN (15:03)
[2019-05-01] MEDS: VANCOMYCIN 1 GM/NS 1 GM/250 ML IVPB IV SCH (17:37)
[2019-05-01] MEDS: LOVENOX SUBQ SCH (18:31)
--- NOTE | 2019-05-01 18:39 | PROVIDER PROGRESS NOTE ---
Progress Note Dr. Hill Progress Note/Pulmonary and or critical care We appreciated progress of care, Complications, change in diagnosis, and instructions to patient. Subjective: We note the level of consciousness, bed (chair) position, family presence (if any), level of lethargy, feeling of symptoms, and changes from baseline condition/symptom. The patient is still intubated. Weaning trials start today. Both diprivan and versed on stand by at this time, but patient is still on AC ventilator. She is a wake with eyes open. She is calm and cooperative. She denies any pain. Objective: Vital Signs: We reviewed EMR current values for Pulse rate, Blood pressure, Pulse rate, respiratory rate and Pulse oximetry. Also noted other values and trends if present (e.g. I/O, CVP). T 98 (no fever in last 24 hours), MO 88, RR 19, BP 126/94 and SaO2 98% on AC 16, 40%, 450, 5. I/O +436 ml Physical Examination: General: Intubated. Lying in bed with no acute distress noted. HEENT: Normocephalic. Trachea midline. ET tube in place. Chest: Mechanically ventilated. Symmetrical excursion. Mildly coarse breathing sounds bilaterally. CVS: Regular rate and rhythm with S1 and S2 appreciated. Abdomen: Soft. Nontender. Nondistended. Normoactive bowel sounds in all 4 quadrants noted. Extremities: No pedal edema. No cyanosis. No clubbing. Neuro: Awake and alert. Follow simple commands. Labs and Radiology: Reviewed available labs and radiology values available at time of EMR review. Laboratory Results 04/30/19 04/30/19 04/30/19 18:56 19:33 20:12 WBC RBC Hgb Hct MCV MCH MCHC RDW Std Deviation Plt Count MPV Immature Gran % (Auto) Neut % (Auto) Lymph % (Auto) [place] % (Auto) Eos % (Auto) Baso % (Auto) Immature Gran # (Auto) Neut # (Auto) Lymph # (Auto) [place] # (Auto) Eos # (Auto) Baso # (Auto) Specimen Type Sample Site pH pCO2 pO2 HCO3 Base Excess Oxyhemoglobin ABG O2 Sat (Calculated) ABG O2 Saturation ABG Carboxyhemoglobin ABG Methemoglobin Rj Test A-a O2 Difference Total Hemoglobin Lactate Blood Gas Modality Vent Mode Spontaneous Rate FiO2 % Tidal Volume PEEP Pressure Support Sodium 143 Potassium 4.0 Chloride 116 H Carbon Dioxide 17 L Anion Gap 10 BUN 5 L Creatinine 0.6 Estimated GFR/1.73 m2 > 60 BUN/Creatinine Ratio 8 Glucose 137 H POC Glucose 123 H 128 H Calculated Osmolality 284 Calcium 7.5 L Phosphorus 2.9 Magnesium 2.2 Total Bilirubin AST ALT Alkaline Phosphatase Total Protein Albumin Globulin Albumin/Globulin Ratio Random Vancomycin 04/30/19 04/30/19 05/01/19 21:07 22:56 00:24 WBC RBC Hgb Hct MCV MCH MCHC RDW Std Deviation Plt Count MPV Immature Gran % (Auto) Neut % (Auto) Lymph % (Auto) [place] % (Auto) Eos % (Auto) Baso % (Auto) Immature Gran # (Auto) Neut # (Auto) Lymph # (Auto) [place] # (Auto) Eos # (Auto) Baso # (Auto) Specimen Type Sample Site pH pCO2 pO2 HCO3 Base Excess Oxyhemoglobin ABG O2 Sat (Calculated) ABG O2 Saturation ABG Carboxyhemoglobin ABG Methemoglobin Rj Test A-a O2 Difference Total Hemoglobin Lactate Blood Gas Modality Vent Mode Spontaneous Rate FiO2 % Tidal Volume PEEP Pressure Support Sodium 140 Potassium 4.6 Chloride 114 H Carbon Dioxide 16 L Anion Gap 10 BUN 4 L Creatinine 0.6 Estimated GFR/1.73 m2 > 60 BUN/Creatinine Ratio 7 Glucose 245 H D POC Glucose 151 H 252 H D Calculated Osmolality 284 Calcium 7.7 L Phosphorus 2.9 Magnesium 2.1 Total Bilirubin AST ALT Alkaline Phosphatase Total Protein Albumin Globulin Albumin/Globulin Ratio Random Vancomycin 05/01/19 05/01/19 05/01/19 04:22 05:25 05:30 WBC RBC Hgb Hct MCV MCH MCHC RDW Std Deviation Plt Count MPV Immature Gran % (Auto) Neut % (Auto) Lymph % (Auto) [place] % (Auto) Eos % (Auto) Baso % (Auto) Immature Gran # (Auto) Neut # (Auto) Lymph # (Auto) [place] # (Auto) Eos # (Auto) Baso # (Auto) Specimen Type ARTERIAL Sample Site R RADIAL pH 7.39 pCO2 31 L pO2 192 H HCO3 21.0 Base Excess -5.1 L Oxyhemoglobin ABG O2 Sat (Calculated) ABG O2 Saturation ABG Carboxyhemoglobin ABG Methemoglobin Rj Test YES A-a O2 Difference 54.0 Total Hemoglobin Lactate 1.90 Blood Gas Modality VENTILATOR Vent Mode A/C Spontaneous Rate 16 FiO2 % 40.0 Tidal Volume 450 PEEP 5.0 Pressure Support Sodium 142 Potassium 4.0 Chloride 115 H Carbon Dioxide 19 L Anion Gap 8 BUN 5 L Creatinine 0.6 Estimated GFR/1.73 m2 > 60 BUN/Creatinine Ratio 8 Glucose 167 H POC Glucose 145 H Calculated Osmolality 284 Calcium 7.5 L Phosphorus 1.9 L Magnesium 2.0 Total Bilirubin < 0.15 L AST 10 ALT 8 L Alkaline Phosphatase 73 Total Protein 5.1 L Albumin 2.6 L Globulin 2.5 Albumin/Globulin Ratio 1.0 Random Vancomycin 05/01/19 05/01/19 05/01/19 05:30 08:46 13:10 WBC 6.60 RBC 3.14 L Hgb 8.1 L Hct 27.1 L MCV 86.3 MCH 25.8 L MCHC 29.9 L RDW Std Deviation 13.7 Plt Count 215 MPV 11.9 H Immature Gran % (Auto) 0.0 Neut % (Auto) 60.0 Lymph % (Auto) 27.0 [place] % (Auto) 8.3 Eos % (Auto) 4.5 Baso % (Auto) 0.2 Immature Gran # (Auto) 0.00 Neut # (Auto) 3.96 Lymph # (Auto) 1.78 [place] # (Auto) 0.55 Eos # (Auto) 0.30 Baso # (Auto) 0.01 Specimen Type ARTERIAL Sample Site R RADIAL pH 7.38 pCO2 35 pO2 165 H HCO3 21.9 Base Excess -3.9 L Oxyhemoglobin 98.0 ABG O2 Sat (Calculated) 14.7 L ABG O2 Saturation 99.8 ABG Carboxyhemoglobin 1.10 ABG Methemoglobin 0.7 Rj Test YES A-a O2 Difference 76.0 Total Hemoglobin 10.4 L Lactate 1.00 Blood Gas Modality VENTILATOR Vent Mode Spontaneous Rate FiO2 % 40.0 Tidal Volume PEEP 5.0 Pressure Support 5.00 Sodium Potassium Chloride Carbon Dioxide Anion Gap BUN Creatinine Estimated GFR/1.73 m2 BUN/Creatinine Ratio Glucose POC Glucose 237 H D Calculated Osmolality Calcium Phosphorus Magnesium Total Bilirubin AST ALT Alkaline Phosphatase Total Protein Albumin Globulin Albumin/Globulin Ratio Random Vancomycin 05/01/19 05/01/19 05/01/19 13:32 15:30 17:21 WBC RBC Hgb Hct MCV MCH MCHC RDW Std Deviation Plt Count MPV Immature Gran % (Auto) Neut % (Auto) Lymph % (Auto) [place] % (Auto) Eos % (Auto) Baso % (Auto) Immature Gran # (Auto) Neut # (Auto) Lymph # (Auto) [place] # (Auto) Eos # (Auto) Baso # (Auto) Specimen Type Sample Site pH pCO2 pO2 HCO3 Base Excess Oxyhemoglobin ABG O2 Sat (Calculated) ABG O2 Saturation ABG Carboxyhemoglobin ABG Methemoglobin Rj Test A-a O2 Difference Total Hemoglobin Lactate Blood Gas Modality Vent Mode Spontaneous Rate FiO2 % Tidal Volume PEEP Pressure Support Sodium Potassium Chloride Carbon Dioxide Anion Gap BUN Creatinine Estimated GFR/1.73 m2 BUN/Creatinine Ratio Glucose POC Glucose 118 H D 282 H D Calculated Osmolality Calcium Phosphorus Magnesium Total Bilirubin AST ALT Alkaline Phosphatase Total Protein Albumin Globulin Albumin/Globulin Ratio Random Vancomycin 19.90 Assessment: Acute respiratory failure. Selective intubated on 04/28/19 for airway protection secondary to metabolic encephalopathy. DKA. Klebsiella bacteremia. Acute encephalopathy. Cocaine abuse. Prognosis is guarded. Plan: Continue current treatment and supportive care per admitting and other teams on the case. Weaning trials. Ventilation checked and titrated to patients needs per clinical protocol with closely monitoring. Sedation (Propofol and Midazolam) titrated to patients needs per clinical protocol with closely monitoring. Antibiotics (Cefepime and vancomycin) and bronchodilators. Tobacco cessation education when appropriate. Appropriate DVT and GI prophylaxis Input was appreciated from Admitting MD and other teams on the case. Evaluation time in minutes: 32 minutes.
[2019-05-01] MEDS: LANTUS INSULIN SUBQ SCH (20:12)
--- NOTE | 2019-05-01 20:36 | EEG REPORT ---
DATE: 05/01/2019 REFERRING: Dr. Jalloh. CLINICAL ASST: Deirdre Joel. BACKGROUND INFORMATION/TECHNIQUE: This is a digitally recorded portable routine EEG with video. HISTORY: A 24-year-old female patient admitted with altered mental status. EEG is ordered to detect evidence of seizures. MEDICATIONS: Include Diprivan and morphine p.r.n. EEG FINDINGS: Diprivan was turned off at the start of the recording. A posterior dominant alpha rhythm is not seen. At the start of the record, the background consists of diffuse polymorphic delta slowing with superimposed faster frequencies. As the record continues, the delta slowing becomes more infrequent and ultimately rare. At end of the record the background is primarily alpha and beta range slowing with some intermixed theta frequencies. No definite persistent focal slowing. No epileptiform discharges. No seizures. Hyperventilation is not performed. Photic stimulation does not significantly alter the record. No definite drowsiness patterns. Stage N2 sleep is not seen. EKG demonstrates regular RR intervals. IMPRESSION AND CLINICAL CORRELATION: Abnormal routine EEG due to generalized background slowing which improved throughout the record. This is indicative of a nonspecific encephalopathy. Most likely this is related to pharmacologic sedation as there was significant improvement as the record continued. No epileptiform discharges or seizures seen on the current study. This does not rule out an underlying seizure disorder. Clinical correlation is recommended. cc: Macie Jalloh MD [facility]
--- NOTE | 2019-05-01 20:36 | PROGRESS NOTE ---
DATE: 05/01/2019 SUBJECTIVE: The patient is resting comfortably on the acute on the ventilator. She follows commands. OBJECTIVE: Vital Signs: Temperature 98.8 degrees, blood pressure 125/80, heart rate 99, respirations 16, O2 saturations 100% on the mechanical ventilator, FiO2 40. General: This is a young female lying in bed in no acute distress. Heart: S1, S2 normal. Tachycardic. Lungs: Equal air entry bilaterally. No wheezing. No rales. Abdomen: Positive bowel sounds. Soft, nontender, nondistended. Extremities: No edema, no cyanosis. Neurologic: The patient is alert and oriented x4. LABS: White blood cell count 6.6, hemoglobin 8.1, hematocrit 27, platelets 215,000. Sodium 142, potassium 4, chloride 115, CO2 19, BUN 5, creatinine 0.6 glucose 167, phosphorus 1.9, albumin 2.6. Chest x-ray shows lungs that are clear. ASSESSMENT AND PLAN: 1. Global encephalopathy. Multifactorial. This may be secondary to the recent cocaine use versus infection. The patient has responded well to antibiotic therapy. We will monitor her mental status closely once extubated. 2. Acute hypoxemic respiratory failure. The patient is currently undergoing a weaning trial and if she does well, will likely be extubated today. 3. Cocaine abuse. Aware. We will discuss this with the patient once she is off the ventilator. 4. Diabetic ketoacidosis. Resolved. 5. Poorly controlled insulin dependent diabetes mellitus. Will increase the lantus dosage. Continue on sliding scale insulin. 6. Anemia. We will monitor the hemoglobin and hematocrit closely. 7. Bacteremia secondary to Klebsiella pneumoniae. The patient is currently on Rocephin. Repeat blood cultures are currently pending. Dr. Watkins is following. 8. Chronic pancreatitis. Aware. Monitor closely. 9. Deep vein thrombosis prophylaxis. Continue on Lovenox. cc: Coni Franco MD [facility]
[2019-05-01] MEDS: SODIUM CHLORIDE 0.9% INJ PRN (22:07)
[2019-05-01] MEDS: PHENERGAN IV PRN (22:07)
[2019-05-02] MEDS: HUMALOG SUBQ SCH ×6 (01:40→21:00)
[2019-05-02] MEDS: 1/2 NS 1,000 ML IV SCH (03:39)
[2019-05-02] MEDS: DUONEB (A & A) INH SCH ×2 (03:39→10:10)
[2019-05-02] MEDS: VANCOMYCIN 1 GM/NS 1 GM/250 ML IVPB IV SCH (04:48)
[2019-05-02 05:37] LABS: BASO# 0.01 X1000 (0.0-0.2); BASO% 0.1 % (0.0-0.8); EOS# 0.17 X1000 (0.0-0.7); EOS% 2.2 % (0.0-10.0); HEMATOCRIT 29.6 % (37.0-47.0); HEMOGLOBIN 9.1 g/dL (12.0-16.0); LYMPH# 1.28 X1000 (1.2-3.4); LYMPH% 16.4 % (20.5-51.1); MCH 26.1 PG (27-31); MCHC 30.7 g/dL (33-37); MCV 84.8 FL (81-99); MONO# 0.58 X1000 (0.11-0.59); MONO% 7.4 % (1.7-9.3); MPV 11.6 FL (7.4-10.4); NEUT# 5.76 X1000 (1.4-6.5); NEUT% 73.9 % (42.2-75.2); PLT 254 X1000 (130-400); RBC 3.49 XMIL (4.2-5.4); RDW 13.4 % (11.5-14.5)
[2019-05-02] MEDS: PROTONIX IV SCH (06:06)
[2019-05-02 06:32] LABS: AGAP 15; ALKALINE PHOSPHATASE 97 U/L (32-104); BUN 4 mg/dL (8-22); CHLORIDE 103 mmol/L (98-107); COSMO 286; CREATININE 0.6 mg/dL (0.5-0.9); ESTIMATED GFR > 60; GLUCOSE 269 mg/dL (70-104); GOT 22 U/L (10-30); GPT 11 U/L (10-36); MAGNESIUM 1.6 mg/dL (1.5-2.7); PHOSPHORUS 2.8 mg/dL (2.7-4.5); POTASSIUM 3.8 mmol/L (3.5-5.1); SODIUM 140 mmol/L (136-145); TCO2 22 mmol/L (25-35)
--- NOTE | 2019-05-02 07:22 | Diag Imaging Result Doc PS360 ---
EXAM: CHEST-1 VIEW HISTORY: SOB TECHNIQUE: Single view COMPARISON: 05/01/2019 FINDINGS: The endotracheal and nasogastric tubes have been removed. The lungs are well expanded. No consolidation. No cardiac megaly. No pleural effusions identified. No change in the right subclavian portacatheter. No pneumothorax. IMPRESSION: No acute abnormality following the removal of the endotracheal tube and nasogastric tube. Electronically signed by Suleman García 05/02/2019 7:20 AM
[2019-05-02] MEDS: LOPRESSOR PO SCH ×2 (08:21→20:32)
[2019-05-02] MEDS: PHENERGAN IV PRN ×2 (08:21→17:07)
[2019-05-02] MEDS: ROCEPHIN 2 GM in NS 50 ML IV SCH (08:22)
[2019-05-02] MEDS: LANTUS INSULIN SUBQ SCH ×2 (08:23→21:00)
[2019-05-02] MEDS: COMPAZINE IV PRN ×2 (10:28→20:31)
--- NOTE | 2019-05-02 10:59 | PROVIDER PROGRESS NOTE ---
Progress Note Dr. Hill Progress Note/Pulmonary and or critical care We appreciated progress of care, Complications, change in diagnosis, and instructions to patient. Subjective: We note the level of consciousness, bed (chair) position, family presence (if any), level of lethargy, feeling of symptoms, and changes from baseline condition/symptom. The patient was successfully extubated yesterday. She is lying in bed on room air with no acute distress noted. She complains of nausea and vomiting with RLQ tenderness. There is about 30cc greenish vomiting in the basin noted. She apparently had constant nausea and vomiting yesterday afternoon which was not relieved with Zofran or Compazine. She reports occasional productive cough, but no sore throat, chest pain, chest congestion or chest tightness. She has some even white coating on her tongue which is not scratchable. Objective: Vital Signs: We reviewed EMR current values for Pulse rate, Blood pressure, Pulse rate, respiratory rate and Pulse oximetry. Also noted other values and trends if present (e.g. I/O, CVP). T 99.1 (no fever in last 24 hours), MT 111, RR 21, BP 130/93 and SaO2 100% on room air. I/O -2403 ml Physical Examination: General: Lying in bed with no acute distress noted. About 30cc greenish vomiting in the basin on bed noted. HEENT: Normocephalic. Trachea midline. Mucosa pink and moist with even white coating on tongue noted. Chest: Even and unlabored. Symmetrical excursion. Clear to auscultation bilaterally. CVS: Tachycardia with Regular rate and rhythm. S1 and S2 appreciated. Abdomen: Soft. RLQ tenderness. Nondistended. Normoactive bowel sounds in all 4 quadrants noted. Extremities: No pedal edema. No cyanosis. No clubbing. Neuro: Awake and alert x 3. Speech fluent. Follow simple commands. Labs and Radiology: Reviewed available labs and radiology values available at time of EMR review. Laboratory Results 05/01/19 05/01/19 05/01/19 13:10 13:32 15:30 WBC RBC Hgb Hct MCV MCH MCHC RDW Std Deviation Plt Count MPV Immature Gran % (Auto) Neut % (Auto) Lymph % (Auto) [place] % (Auto) Eos % (Auto) Baso % (Auto) Immature Gran # (Auto) Neut # (Auto) Lymph # (Auto) [place] # (Auto) Eos # (Auto) Baso # (Auto) Specimen Type ARTERIAL Sample Site R RADIAL pH 7.38 pCO2 35 pO2 165 H HCO3 21.9 Base Excess -3.9 L Oxyhemoglobin 98.0 ABG O2 Sat (Calculated) 14.7 L ABG O2 Saturation 99.8 ABG Carboxyhemoglobin 1.10 ABG Methemoglobin 0.7 Rj Test YES A-a O2 Difference 76.0 Total Hemoglobin 10.4 L Lactate 1.00 Blood Gas Modality VENTILATOR FiO2 % 40.0 PEEP 5.0 Pressure Support 5.00 Sodium Potassium Chloride Carbon Dioxide Anion Gap BUN Creatinine Estimated GFR/1.73 m2 BUN/Creatinine Ratio Glucose POC Glucose 118 H D Calculated Osmolality Calcium Phosphorus Magnesium Total Bilirubin AST ALT Alkaline Phosphatase Total Protein Albumin Globulin Albumin/Globulin Ratio Amylase Lipase Random Vancomycin 19.90 05/01/19 05/01/19 05/01/19 17:21 20:05 23:51 WBC RBC Hgb Hct MCV MCH MCHC RDW Std Deviation Plt Count MPV Immature Gran % (Auto) Neut % (Auto) Lymph % (Auto) [place] % (Auto) Eos % (Auto) Baso % (Auto) Immature Gran # (Auto) Neut # (Auto) Lymph # (Auto) [place] # (Auto) Eos # (Auto) Baso # (Auto) Specimen Type Sample Site pH pCO2 pO2 HCO3 Base Excess Oxyhemoglobin ABG O2 Sat (Calculated) ABG O2 Saturation ABG Carboxyhemoglobin ABG Methemoglobin Rj Test A-a O2 Difference Total Hemoglobin Lactate Blood Gas Modality FiO2 % PEEP Pressure Support Sodium Potassium Chloride Carbon Dioxide Anion Gap BUN Creatinine Estimated GFR/1.73 m2 BUN/Creatinine Ratio Glucose POC Glucose 282 H D 213 H 183 H Calculated Osmolality Calcium Phosphorus Magnesium Total Bilirubin AST ALT Alkaline Phosphatase Total Protein Albumin Globulin Albumin/Globulin Ratio Amylase Lipase Random Vancomycin 05/02/19 05/02/19 05/02/19 04:53 05:00 05:00 WBC 7.80 RBC 3.49 L Hgb 9.1 L Hct 29.6 L MCV 84.8 MCH 26.1 L MCHC 30.7 L RDW Std Deviation 13.4 Plt Count 254 MPV 11.6 H Immature Gran % (Auto) 0.0 Neut % (Auto) 73.9 Lymph % (Auto) 16.4 L [place] % (Auto) 7.4 Eos % (Auto) 2.2 Baso % (Auto) 0.1 Immature Gran # (Auto) 0.00 Neut # (Auto) 5.76 Lymph # (Auto) 1.28 [place] # (Auto) 0.58 Eos # (Auto) 0.17 Baso # (Auto) 0.01 Specimen Type Sample Site pH pCO2 pO2 HCO3 Base Excess Oxyhemoglobin ABG O2 Sat (Calculated) ABG O2 Saturation ABG Carboxyhemoglobin ABG Methemoglobin Rj Test A-a O2 Difference Total Hemoglobin Lactate Blood Gas Modality FiO2 % PEEP Pressure Support Sodium 140 Potassium 3.8 Chloride 103 Carbon Dioxide 22 L Anion Gap 15 BUN 4 L Creatinine 0.6 Estimated GFR/1.73 m2 > 60 BUN/Creatinine Ratio 7 Glucose 269 H D POC Glucose 260 H Calculated Osmolality 286 Calcium 8.0 L Phosphorus 2.8 Magnesium 1.6 Total Bilirubin 0.20 AST 22 ALT 11 Alkaline Phosphatase 97 Total Protein 6.0 L Albumin 3.0 L Globulin 3.0 Albumin/Globulin Ratio 1.0 Amylase Lipase Random Vancomycin 05/02/19 05/02/19 05/02/19 05:00 05:00 08:05 WBC RBC Hgb Hct MCV MCH MCHC RDW Std Deviation Plt Count MPV Immature Gran % (Auto) Neut % (Auto) Lymph % (Auto) [place] % (Auto) Eos % (Auto) Baso % (Auto) Immature Gran # (Auto) Neut # (Auto) Lymph # (Auto) [place] # (Auto) Eos # (Auto) Baso # (Auto) Specimen Type Sample Site pH pCO2 pO2 HCO3 Base Excess Oxyhemoglobin ABG O2 Sat (Calculated) ABG O2 Saturation ABG Carboxyhemoglobin ABG Methemoglobin Rj Test A-a O2 Difference Total Hemoglobin Lactate Blood Gas Modality FiO2 % PEEP Pressure Support Sodium Potassium Chloride Carbon Dioxide Anion Gap BUN Creatinine Estimated GFR/1.73 m2 BUN/Creatinine Ratio Glucose POC Glucose 141 H Calculated Osmolality Calcium Phosphorus Magnesium Total Bilirubin AST ALT Alkaline Phosphatase Total Protein Albumin Globulin Albumin/Globulin Ratio Amylase 16 L Lipase 6 L Random Vancomycin Assessment: Acute respiratory failure. Selective intubated on 04/28/19 for airway protection secondary to metabolic encephalopathy. DKA. Klebsiella bacteremia. Acute encephalopathy. Cocaine abuse. Prognosis is guarded. Plan: Continue current treatment and supportive care per admitting and other teams on the case. Antibiotics (Rocephin) and bronchodilators. Tobacco cessation education when appropriate. Appropriate DVT and GI prophylaxis Transfer to Medical floor. Input was appreciated from Admitting MD and other teams on the case. Evaluation time in minutes: 35 minutes.
[2019-05-02] MEDS ORDERED: MAGNESIUM SULFATE 2 GM/S.W.I. 2 GM/50 ML IVPB IV ONE (11:08)
--- NOTE | 2019-05-02 12:48 | INFECTIOUS DISEASE PROGRESS NO ---
DATE: 05/02/2019 PRESENT ILLNESS: The patient has a Klebsiella bacteremia, which I think originated from illicit drug use. MEDICATIONS: The patient is receiving Rocephin 1 gram IV every 24 hours. This is the second day of treatment with Rocephin, with day #1 being the first day that the patient's repeat blood cultures are sterile. PHYSICAL EXAMINATION: Vital Signs: Temperature is 99.1 degrees, pulse 105, respirations 20, blood pressure 130/93. General: This is a somewhat ill-appearing, young female. She is in no acute distress, however. HEENT: She can hear my spoken words and see near objects. She does appear to have a white coating on her tongue, suggestive of oral candidiasis. Neck: No pain with movement. Lungs: Clear to auscultation. Cardiovascular: Heart rate is regular. Abdomen: Soft and nontender. Neurologic: The patient is alert. She can move her extremities. There is no tremor. Thorax: The patient has a right subclavian catheter in place. The site is not erythematous or tender. IMAGING AND LABORATORY DATA: Chest x-ray shows clear lung eaton. Liver function studies are normal. CBC shows a white count of 7800, hemoglobin 9.1, and platelet count 254,000. Creatinine is 0.6. GFR is greater than 60. ASSESSMENT AND PLAN: I plan to continue Rocephin for a total of 12 more days to complete a 14-day treatment. The patient did have bacteremia, as mentioned above, which I think came from illicit drug use, but I do not think she had meningitis, and she does not appear to have pneumonia either. COMORBIDITIES: The patient is a diabetic. She also has chronic pancreatitis, and she does illicit drug use. Also, the patient smokes cigarettes, drinks alcoholic beverages also, as well as using illicit drugs, namely cocaine. cc: Chas Watkins MD
[2019-05-02] MEDS ORDERED: MYCOSTATIN SUSP PO SCH (13:00)
--- NOTE | 2019-05-02 14:26 | NEUROLOGY PROGRESS NOTE ---
DATE: 05/02/2019 Dr. Jalloh saw Ms. Cintron for initial neurology evaluation. She had evidence of global encephalopathy, no focal features, no clinical evidence of increased intracranial pressure. EEG showed generalized slowing. Noncontrast CT of the head 4 days ago showed nothing remarkable, nothing focal or acute, no bleeding and no mass. She presented with a drug screen positive for cocaine, blood sugars over 700, fever. She has been afebrile for 4 days now. Blood sugars have ranged 100s-200s in recent days. On exam, she was initially asleep and was easily waked, then alert and attentive during my time at the bedside. She answered simple questions appropriately and correctly. She identified the hospital and named the President. Neck is supple. Speech is not dysarthric. I do not have any new thoughts or new suggestions from neurology standpoint. She has global encephalopathy which has significantly improved and will likely continue to improve. Thanks for asking us to see Ms. Cintron. cc: MD SILVIO Quinones III
[2019-05-02] MEDS: MYCOSTATIN SUSP PO SCH ×2 (14:29→20:32)
[2019-05-02] MEDS: LOVENOX SUBQ SCH (17:08)
[2019-05-02] MEDS: MORPHINE IV PRN ×2 (17:08→20:32)
[2019-05-02] MEDS: ROCEPHIN 1 GM in NS 50 ML IV SCH (20:33)
[2019-05-02] MEDS: OFIRMEV 1000 MG/ISOTONIC SOLN 1,000 MG/100 ML BOTTLE IV PRN (20:33)
[2019-05-03] MEDS: HUMALOG SUBQ SCH ×6 (01:00→21:26)
--- NOTE | 2019-05-03 04:34 | PROGRESS NOTE ---
DATE: 05/02/2019 SUBJECTIVE: The patient was extubated yesterday. She currently has normal oxygen saturations on room air. She complains of some mild abdominal pain. OBJECTIVE: Vital Signs: Temperature 99 degrees, blood pressure 115/62, heart rate 98, respirations 16, O2 saturation 98% on room air. General: This is a young female lying in bed, in no acute distress. Heart: S1, S2 normal. Regular rate and rhythm. Lungs: Equal air entry bilaterally. No wheezing. No rales. Abdomen: Positive bowel sounds. Soft, nontender, nondistended. Extremities: No edema, no cyanosis. Neurologic: The patient is alert and oriented x4. LABS: Sodium 140, potassium 3.8, BUN 4, creatinine 0.6, glucose 269, lipase 6, amylase 16. ASSESSMENT AND PLAN: 1. Global encephalopathy. Improved. 2. Acute hypoxemic respiratory failure, status post extubation. Resolved. 3. Cocaine abuse. The patient has been counseled about cessation. 4. Diabetic ketoacidosis. Resolved. 5. Poorly controlled insulin-dependent diabetes mellitus. Continue on the current insulin regimen. 6. Bacteremia, secondary to Klebsiella pneumoniae. So far, repeat blood cultures remain negative. We will likely transition the patient to oral antibiotic therapy upon discharge. Continue with the current antibiotic regimen as directed by Dr. Watkins. 7. Hypertension. Controlled. 8. Chronic pancreatitis. Aware. 9. Deep vein thrombosis prophylaxis. Continue on Lovenox. 10. The patient was transferred to the medical floor. cc: Coni Franco MD
[2019-05-03 06:53] LABS: BASO# 0.02 X1000 (0.0-0.2); BASO% 0.3 % (0.0-0.8); EOS# 0.33 X1000 (0.0-0.7); EOS% 4.9 % (0.0-10.0); HEMATOCRIT 34.3 % (37.0-47.0); HEMOGLOBIN 10.3 g/dL (12.0-16.0); IMM GRAN# 0.02 X1000 (0.0-0.04); IMM GRAN% 0.3 % (0.0-0.5); LYMPH% 22.2 % (20.5-51.1); MCH 25.6 PG (27-31); MCV 85.1 FL (81-99); MONO# 0.69 X1000 (0.11-0.59); MONO% 10.2 % (1.7-9.3); MPV 10.4 FL (7.4-10.4); NEUT% 62.1 % (42.2-75.2); PLT 291 X1000 (130-400); RBC 4.03 XMIL (4.2-5.4); RDW 13.5 % (11.5-14.5); WBC 6.76 X1000 (4.8-10.8)
[2019-05-03 07:22] LABS: AGAP 13; ALBUMIN 3.3 g/dL (3.5-5.0); ALKALINE PHOSPHATASE 97 U/L (32-104); BUN 4 mg/dL (8-22); CALCIUM 8.5 mg/dL (8.8-10.2); CHLORIDE 104 mmol/L (98-107); COSMO 284; CREATININE 0.6 mg/dL (0.5-0.9); ESTIMATED GFR > 60; GLUCOSE 131 mg/dL (70-104); GOT 21 U/L (10-30); GPT 12 U/L (10-36); MAGNESIUM 1.8 mg/dL (1.5-2.7); PHOSPHORUS 2.6 mg/dL (2.7-4.5); POTASSIUM 3.4 mmol/L (3.5-5.1); SODIUM 143 mmol/L (136-145); TCO2 26 mmol/L (25-35); TOTAL BILIRUBIN 0.18 mg/dL (0.20-1.00); TOTAL PROTEIN 6.5 g/dL (6.3-8.3)
[2019-05-03] MEDS: MYCOSTATIN SUSP PO SCH ×4 (08:06→12:35)
[2019-05-03] MEDS: LOPRESSOR PO SCH ×3 (08:58→21:06)
[2019-05-03] MEDS: PROTONIX IV SCH (08:58)
[2019-05-03] MEDS: MORPHINE IV PRN (08:58)
[2019-05-03] MEDS: SODIUM CHLORIDE 0.9% INJ PRN (08:58)
[2019-05-03] MEDS: KLOR-CON PO ONE ×2 (08:59→12:34)
[2019-05-03] MEDS: LANTUS INSULIN SUBQ SCH ×3 (08:59→21:05)
[2019-05-03] MEDS: ZOFRAN IV PRN ×2 (09:00→20:38)
--- NOTE | 2019-05-03 09:59 | Diag Imaging Result Doc PS360 ---
CHEST-1 VIEW - 05/03/2019 INDICATION: SOB COMPARISON: 05/02/2019 FINDINGS: The lungs are normally expanded and clear. Heart size and mediastinal contours are normal. No pneumothorax or pleural effusion. Stable right central line in good position. IMPRESSION: Negative exam. Electronically signed by Maximiliano Payton 05/03/2019 9:57 AM
--- NOTE | 2019-05-03 10:08 | Diag Imaging Result Doc PS360 ---
ABDOMEN FLAT/UPRIGHT - 05/03/2019 INDICATION: abdominal pain COMPARISON: None FINDINGS: There are dense calcifications throughout the pancreas indicating chronic pancreatitis. No bowel obstruction or free air. IMPRESSION: Findings of chronic pancreatitis. Electronically signed by Maximiliano Payton 05/03/2019 10:06 AM
[2019-05-03] MEDS: COMPAZINE IV PRN (12:42)
[2019-05-03] MEDS ORDERED: ERYTHROMYCIN 250 MG in NS 150 ML IV ONE (13:00)
--- NOTE | 2019-05-03 13:10 | NEUROLOGY PROGRESS NOTE ---
DATE: 05/03/2019 LOCATION: Room 420. SUBJECTIVE: Ms. Cintron has moves from ICU. She reports no headache. OBJECTIVE: She is awake, alert, attentive, bright, appropriate. Her speech is not significantly dysarthric. Language function is intact. She is oriented. I do not have any new thoughts or new suggestions from Neurology standpoint. Her global encephalopathy appears to have resolved predictably. I will sign off, and be glad to see Ms. Cintron again, if needed. Thank you for asking Neurology to see her. cc: MD SILVIO Quinones III
[2019-05-03] MEDS ORDERED: LABETALOL IV PRN (13:18)
[2019-05-03] MEDS ORDERED: MYCELEX TROCHE PO SCH (15:00)
--- NOTE | 2019-05-03 16:01 | PROGRESS NOTE ---
DATE: 05/03/2019 SUBJECTIVE: The patient states that she is still feeling very nauseated whenever she tries to eat or drink anything. She does complain of mild abdominal pain. OBJECTIVE: Vital Signs: Temperature 98 degrees. Blood pressure 107/110, respirations 17, heart rate 99, O2 saturations 100% on room air. General: This is a young female lying in bed, in no acute distress. Heart: S1, S2 normal. Tachycardic. Lungs: Equal air entry bilaterally. No wheezing. No rales. Abdomen: Positive bowel sounds. Soft, nontender, nondistended. Extremities: No edema. No cyanosis. Neurologic: The patient is alert and oriented x3. LABORATORY DATA: Hemoglobin 10, hematocrit 34, platelets 291,000. Sodium 143, potassium 3.4, glucose 131, BUN 4, creatinine 0.6, calcium 8.5. Abdominal x-ray shows chronic pancreatitis. Chest x-ray, no acute disease. ASSESSMENT AND PLAN: 1. Abdominal pain with nausea and vomiting. This may represent diabetic gastroparesis. We will schedule the patient to undergo a gastric emptying study tomorrow. 2. Global encephalopathy. Resolved. 3. Acute hypoxemic respiratory failure status post extubation. Resolved. 4. Cocaine abuse. The patient has been counseled about cessation. 5. Poorly controlled insulin-dependent diabetes mellitus. Stable. Continue on the current insulin regimen. 6. Diabetic ketoacidosis. Resolved. 7. Bacteremia secondary to Klebsiella pneumonia. Continue on the current antibiotic regimen as directed by Dr. Watkins. So far, the repeat blood cultures remain negative. 8. Hypertension. Controlled. 9. Chronic pancreatitis. Aware. 10. Deep vein thrombosis prophylaxis. Continue on Lovenox. cc: Coni Franco MD
[2019-05-03] MEDS: OFIRMEV 1000 MG/ISOTONIC SOLN 1,000 MG/100 ML BOTTLE IV PRN (16:26)
--- NOTE | 2019-05-03 16:34 | PROVIDER PROGRESS NOTE ---
Progress Note Dr. Hill Progress Note/Pulmonary and or critical care We appreciated progress of care, Complications, change in diagnosis, and instructions to patient. Subjective: We note the level of consciousness, bed (chair) position, family presence (if any), level of lethargy, feeling of symptoms, and changes from baseline condition/symptom. The patient was successfully extubated yesterday. She is lying in bed on room air with no acute distress noted. She complains of nausea and vomiting with RLQ tenderness. There is about 30cc greenish vomiting in the basin noted. She apparently had constant nausea and vomiting yesterday afternoon which was not relieved with Zofran or Compazine. She reports occasional productive cough, but no sore throat, chest pain, chest congestion or chest tightness. She has some even white coating on her tongue which is not scratchable. Objective: Vital Signs: We reviewed EMR current values for Pulse rate, Blood pressure, Pulse rate, respiratory rate and Pulse oximetry. Also noted other values and trends if present (e.g. I/O, CVP). T 99.1 (no fever in last 24 hours), [place] 111, RR 21, BP 130/93 and SaO2 100% on room air. I/O -2403 ml Physical Examination: General: Lying in bed with no acute distress noted. About 30cc greenish vomiting in the basin on bed noted. HEENT: Normocephalic. Trachea midline. Mucosa pink and moist with even white coating on tongue noted. Chest: Even and unlabored. Symmetrical excursion. Clear to auscultation bilaterally. CVS: Tachycardia with Regular rate and rhythm. S1 and S2 appreciated. Abdomen: Soft. RLQ tenderness. Nondistended. Normoactive bowel sounds in all 4 quadrants noted. Extremities: No pedal edema. No cyanosis. No clubbing. Neuro: Awake and alert x 3. Speech fluent. Follow simple commands. Labs and Radiology: Reviewed available labs and radiology values available at time of EMR review. Laboratory Results 05/02/19 05/02/19 05/03/19 16:40 20:34 01:49 WBC RBC Hgb Hct MCV MCH MCHC RDW Std Deviation Plt Count MPV Immature Gran % (Auto) Neut % (Auto) Lymph % (Auto) [place] % (Auto) Eos % (Auto) Baso % (Auto) Immature Gran # (Auto) Neut # (Auto) Lymph # (Auto) [place] # (Auto) Eos # (Auto) Baso # (Auto) Sodium Potassium Chloride Carbon Dioxide Anion Gap BUN Creatinine Estimated GFR/1.73 m2 BUN/Creatinine Ratio Glucose POC Glucose 142 H 101 109 H Calculated Osmolality Calcium Phosphorus Magnesium Total Bilirubin AST ALT Alkaline Phosphatase Total Protein Albumin Globulin Albumin/Globulin Ratio 05/03/19 05/03/19 05/03/19 04:42 06:15 06:15 WBC 6.76 RBC 4.03 L Hgb 10.3 L Hct 34.3 L MCV 85.1 MCH 25.6 L MCHC 30.0 L RDW Std Deviation 13.5 Plt Count 291 MPV 10.4 Immature Gran % (Auto) 0.3 Neut % (Auto) 62.1 Lymph % (Auto) 22.2 [place] % (Auto) 10.2 H Eos % (Auto) 4.9 Baso % (Auto) 0.3 Immature Gran # (Auto) 0.02 Neut # (Auto) 4.20 Lymph # (Auto) 1.50 [place] # (Auto) 0.69 H Eos # (Auto) 0.33 Baso # (Auto) 0.02 Sodium 143 Potassium 3.4 L Chloride 104 Carbon Dioxide 26 Anion Gap 13 BUN 4 L Creatinine 0.6 Estimated GFR/1.73 m2 > 60 BUN/Creatinine Ratio 7 Glucose 131 H D POC Glucose 120 H Calculated Osmolality 284 Calcium 8.5 L Phosphorus 2.6 L Magnesium 1.8 Total Bilirubin 0.18 L AST 21 ALT 12 Alkaline Phosphatase 97 Total Protein 6.5 Albumin 3.3 L Globulin 3.2 Albumin/Globulin Ratio 1.0 05/03/19 05/03/19 08:11 12:26 WBC RBC Hgb Hct MCV MCH MCHC RDW Std Deviation Plt Count MPV Immature Gran % (Auto) Neut % (Auto) Lymph % (Auto) [place] % (Auto) Eos % (Auto) Baso % (Auto) Immature Gran # (Auto) Neut # (Auto) Lymph # (Auto) [place] # (Auto) Eos # (Auto) Baso # (Auto) Sodium Potassium Chloride Carbon Dioxide Anion Gap BUN Creatinine Estimated GFR/1.73 m2 BUN/Creatinine Ratio Glucose POC Glucose 130 H 202 H D Calculated Osmolality Calcium Phosphorus Magnesium Total Bilirubin AST ALT Alkaline Phosphatase Total Protein Albumin Globulin Albumin/Globulin Ratio ssessment: Acute respiratory failure. Selective intubated on 04/28/19 for airway protection secondary to metabolic encephalopathy. DKA. Klebsiella bacteremia. Acute encephalopathy. Cocaine abuse. Prognosis is guarded. Plan: Continue current treatment and supportive care per admitting and other teams on the case. Antibiotics (Rocephin) and bronchodilators. Tobacco cessation education when appropriate. Appropriate DVT and GI prophylaxis Transfer to Medical floor. Input was appreciated from Admitting MD and other teams on the case. Evaluation time in minutes: 32 minutes.
[2019-05-03] MEDS: MYCELEX TROCHE PO SCH ×3 (16:36→20:26)
[2019-05-03] MEDS: LOVENOX SUBQ SCH (17:46)
--- NOTE | 2019-05-03 19:32 | INFECTIOUS DISEASE PROGRESS NO ---
DATE: 05/03/2019 PRESENT ILLNESS: Ms. Cintron has a Klebsiella bacteremia which may have come from illicit drug use or insulin administration. The patient has an oral candidiasis. MEDICATIONS: She is receiving ceftriaxone 1 g IV every 24 hours. Based on her sterile blood cultures, today is day 3 of a 14 day treatment. She is also receiving Nystatin swish and swallow. PHYSICAL EXAMINATION: Vital Signs: Temperature is 98 degrees, pulse rate 99, respiratory rate 17, blood pressure 157/110, O2 saturations 100% on room air. General: This is a somewhat ill- appearing young female. She is sitting up in the bed, currently in no acute distress. HEENT: Atraumatic, normocephalic. Oral mucous membranes are pink and moist with a mild white coating to her tongue. Conjunctivae are pink. Neck: Supple. Trachea is midline. Cardiovascular: Heart rate is regular, S1, S2 noted. Respiratory: Lung sounds are bilaterally clear to auscultation. No work of breathing is noted. Abdomen: Soft, flat, and tender to palpation. Bowel sounds are active. Neurologic: She is awake, alert, oriented, and able to move around independently without any significant weakness. Integumentary: Skin is warm and dry. There is a central line to the right chest. That site is without edema, erythema, or drainage. LABORATORY AND X-RAY: Today, her white count is 6.76, hemoglobin 10.3, platelet count 291,000. Creatinine is 0.6. Estimated GFR is greater than 60. Total bilirubin is 0.18, AST 21, ALT 16, alkaline phosphatase 97. Her blood previously grew 1/2 Klebsiella pneumoniae. Blood cultures have been sterile since 04/30/2019. Abdominal x-ray from today showed findings of chronic pancreatitis. ASSESSMENT AND PLAN: Ms. Cintron is being treated for Klebsiella bacteremia. She is receiving daily ceftriaxone and will need 11 more days to complete a 2 week treatment. She also is receiving nystatin swish and swallow which the patient has refused. Today, I will change her instead to Mycelex Kelsy and hopefully she will tolerate that better. These plans have been discussed with and recommended by Dr. Watkins. COMORBIDITIES: For Ms. Cintron include type 1 diabetes mellitus with poor blood sugar control, chronic pancreatitis, cigarette smoking, and illicit drug use. Dictated by CHINTAN Rader for Chas Watkins MD cc: Chsa Watkins MD MTDD
[2019-05-03] MEDS: ROCEPHIN 1 GM in NS 50 ML IV SCH (20:27)
[2019-05-03] MEDS: NORVASC PO SCH (21:06)
[2019-05-04] MEDS: ZOFRAN IV PRN (01:21)
[2019-05-04] MEDS: OFIRMEV 1000 MG/ISOTONIC SOLN 1,000 MG/100 ML BOTTLE IV PRN (01:29)
[2019-05-04] MEDS: HUMALOG SUBQ SCH ×6 (03:35→20:49)
[2019-05-04] MEDS: PROTONIX IV SCH (06:35)
[2019-05-04] MEDS: SODIUM CHLORIDE 0.9% INJ PRN ×2 (06:35→12:00)
[2019-05-04 07:52] LABS: BASO# 0.02 X1000 (0.0-0.2); BASO% 0.2 % (0.0-0.8); EOS# 0.08 X1000 (0.0-0.7); EOS% 0.8 % (0.0-10.0); HEMATOCRIT 35.4 % (37.0-47.0); HEMOGLOBIN 10.8 g/dL (12.0-16.0); IMM GRAN# 0.06 X1000 (0.0-0.04); IMM GRAN% 0.6 % (0.0-0.5); LYMPH# 1.56 X1000 (1.2-3.4); MCH 25.8 PG (27-31); MCHC 30.5 g/dL (33-37); MCV 84.5 FL (81-99); MONO# 0.67 X1000 (0.11-0.59); MONO% 6.4 % (1.7-9.3); NEUT# 8.01 X1000 (1.4-6.5); PLT 341 X1000 (130-400); RBC 4.19 XMIL (4.2-5.4); RDW 13.1 % (11.5-14.5)
[2019-05-04 08:11] LABS: MAGNESIUM 1.9 mg/dL (1.5-2.7); PHOSPHORUS 3.1 mg/dL (2.7-4.5)
[2019-05-04 08:18] LABS: AGAP 21; BUN 12 mg/dL (8-22); CALCIUM 8.9 mg/dL (8.8-10.2); CHLORIDE 99 mmol/L (98-107); COSMO 286; CREATININE 0.8 mg/dL (0.5-0.9); ESTIMATED GFR > 60; GLUCOSE 264 mg/dL (70-104); POTASSIUM 3.6 mmol/L (3.5-5.1); SODIUM 139 mmol/L (136-145); TCO2 19 mmol/L (25-35)
--- NOTE | 2019-05-04 09:26 | Diag Imaging Result Doc PS360 ---
EXAM: GASTRIC EMPTYING 05/04/2019 HISTORY: gastroparesis TECHNIQUE: 550 uCi of technetium 99m sulfur colloid in scrambled egg COMMENT: The half-time of gastric emptying is over 2000 minutes by linear fit. This is essentially no significant emptying. IMPRESSION: Likely gastroparesis or gastric outlet obstruction. Electronically signed by Matthew Wade 05/04/2019 9:24 AM
[2019-05-04] MEDS ORDERED: ERYTHROMYCIN 250 MG in NS 150 ML IV SCH (09:45)
[2019-05-04] MEDS: LANTUS INSULIN SUBQ SCH ×2 (10:00→20:48)
[2019-05-04] MEDS: NORVASC PO SCH ×2 (10:01→20:05)
[2019-05-04] MEDS: LOPRESSOR PO SCH ×2 (10:01→20:04)
[2019-05-04] MEDS: MYCELEX TROCHE PO SCH ×5 (10:01→20:04)
[2019-05-04] MEDS: ULTRAM PO PRN (10:12)
[2019-05-04] MEDS: ERYTHROMYCIN 250 MG in NS 150 ML IV SCH ×2 (11:53→17:30)
[2019-05-04] MEDS: PHENERGAN IV PRN (12:00)
--- NOTE | 2019-05-04 13:40 | PROVIDER PROGRESS NOTE ---
Progress Note Dr. Hill Progress Note/Pulmonary and or critical care We appreciated progress of care, Complications, change in diagnosis, and instructions to patient. Subjective: We note the level of consciousness, bed (chair) position, family presence (if any), level of lethargy, feeling of symptoms, and changes from baseline condition/symptom. The patient was successfully extubated yesterday. She is lying in bed on room air with no acute distress noted. She complains of nausea and vomiting with RLQ tenderness. There is about 30cc greenish vomiting in the basin noted. She apparently had constant nausea and vomiting yesterday afternoon which was not relieved with Zofran or Compazine. She reports occasional productive cough, but no sore throat, chest pain, chest congestion or chest tightness. She has some even white coating on her tongue which is not scratchable. Objective: Vital Signs: We reviewed EMR current values for Pulse rate, Blood pressure, Pulse rate, respiratory rate and Pulse oximetry. Also noted other values and trends if present (e.g. I/O, CVP). T 96.5 (no fever in last 24 hours), [place] 57 , RR 16 , BP 170/67 and SaO2 100% on room air. Physical Examination: General: Lying in bed with no acute distress noted. HEENT: Normocephalic. Trachea midline. Mucosa pink and moist with even white coating on tongue noted. Chest: Even and unlabored. Symmetrical excursion. Clear to auscultation bilaterally. CVS: Tachycardia with Regular rate and rhythm. S1 and S2 appreciated. Abdomen: Soft. RLQ tenderness. Nondistended. Normoactive bowel sounds in all 4 quadrants noted. Extremities: No pedal edema. No cyanosis. No clubbing. Neuro: Awake and alert x 3. Speech fluent. Follow simple commands. Management, face to face evaluation by Dr. Hill. CHINTAN did scribing only. Labs and Radiology: Reviewed available labs and radiology values available at time of EMR review. Laboratory Results 05/03/19 05/03/19 05/04/19 17:20 20:42 00:50 WBC RBC Hgb Hct MCV MCH MCHC RDW Std Deviation Plt Count MPV Immature Gran % (Auto) Neut % (Auto) Lymph % (Auto) [place] % (Auto) Eos % (Auto) Baso % (Auto) Immature Gran # (Auto) Neut # (Auto) Lymph # (Auto) [place] # (Auto) Eos # (Auto) Baso # (Auto) Sodium Potassium Chloride Carbon Dioxide Anion Gap BUN Creatinine Estimated GFR/1.73 m2 BUN/Creatinine Ratio Glucose POC Glucose 313 H D 204 H 191 H Calculated Osmolality Calcium Phosphorus Magnesium 05/04/19 05/04/19 05/04/19 04:52 06:45 06:45 WBC 10.40 RBC 4.19 L Hgb 10.8 L Hct 35.4 L MCV 84.5 MCH 25.8 L MCHC 30.5 L RDW Std Deviation 13.1 Plt Count 341 MPV 11.0 H Immature Gran % (Auto) 0.6 H Neut % (Auto) 77.0 H Lymph % (Auto) 15.0 L [place] % (Auto) 6.4 Eos % (Auto) 0.8 Baso % (Auto) 0.2 Immature Gran # (Auto) 0.06 H Neut # (Auto) 8.01 H Lymph # (Auto) 1.56 [place] # (Auto) 0.67 H Eos # (Auto) 0.08 Baso # (Auto) 0.02 Sodium Potassium Chloride Carbon Dioxide Anion Gap BUN Creatinine Estimated GFR/1.73 m2 BUN/Creatinine Ratio Glucose POC Glucose 354 H D Calculated Osmolality Calcium Phosphorus 3.1 Magnesium 1.9 05/04/19 05/04/19 06:45 09:38 WBC RBC Hgb Hct MCV MCH MCHC RDW Std Deviation Plt Count MPV Immature Gran % (Auto) Neut % (Auto) Lymph % (Auto) [place] % (Auto) Eos % (Auto) Baso % (Auto) Immature Gran # (Auto) Neut # (Auto) Lymph # (Auto) [place] # (Auto) Eos # (Auto) Baso # (Auto) Sodium 139 Potassium 3.6 Chloride 99 Carbon Dioxide 19 L Anion Gap 21 BUN 12 D Creatinine 0.8 Estimated GFR/1.73 m2 > 60 BUN/Creatinine Ratio 15 Glucose 264 H D POC Glucose 259 H Calculated Osmolality 286 Calcium 8.9 Phosphorus Magnesium Assessment: Acute respiratory failure. Selective intubated on 04/28/19 for airway protection secondary to metabolic encephalopathy. DKA. Klebsiella bacteremia. Acute encephalopathy. Cocaine abuse. Prognosis is guarded. Plan: Continue current treatment and supportive care per admitting and other teams on the case. Antibiotics (Rocephin) and bronchodilators. Tobacco cessation education when appropriate. Appropriate DVT and GI prophylaxis Transfer to Medical floor. Input was appreciated from Admitting MD and other teams on the case. Evaluation time in minutes: 33 minutes.
[2019-05-04] MEDS: LOVENOX SUBQ SCH (18:43)
--- NOTE | 2019-05-04 19:03 | PROGRESS NOTE ---
DATE: 05/04/2019 SUBJECTIVE: The patient underwent a gastric emptying study this morning, and it revealed gastroparesis. The patient states that she still feels nauseated whenever she tries to eat. OBJECTIVE: Vital Signs: Temperature 98.1, blood pressure 126/90, heart rate 119, respirations 20, O2 saturation 100% on room air. General: This is a young female lying in bed in no acute distress. Heart: S1, S2 normal. Lungs: Clear to auscultation bilaterally. Abdomen: Positive bowel sounds. Soft, nontender, nondistended. Extremities: No edema, no cyanosis. Neurologic: The patient is alert and oriented x3. LABS: White blood cell count 10, hemoglobin 10, hematocrit 35, platelets 341. Sodium 139, potassium 3.6, chloride 99, CO2 19, BUN 12, creatinine 0.8, glucose 264. ASSESSMENT AND PLAN: 1. Diabetic gastroparesis versus gastric outlet obstruction. We will start the patient on erythromycin before each meal and monitor her response. We will place her on a full liquid diet and see how she tolerates the regimen. If the patient continues to have nausea and vomiting, we will consult gastroenterology. 2. Global encephalopathy. Resolved. 3. Acute hypoxemic respiratory failure status post extubation. Resolved. 4. Cocaine abuse. The patient has been counseled about cessation. 5. Poorly controlled insulin-dependent diabetes mellitus. Continue on the current insulin regimen. 6. Bacteremia secondary to Klebsiella pneumoniae. Continue on the current antibiotic regimen. So far, the repeat blood cultures are negative. The patient is on day 4 of 14. 7. Diabetic ketoacidosis. Resolved. 8. Hypertension. Controlled. 9. Consult chronic pancreatitis. Aware. 10. Deep vein thrombosis prophylaxis. Continue on Lovenox. cc: Coni Franco MD [facility] HOSPITALRamirez
[2019-05-04] MEDS: ROCEPHIN 1 GM in NS 50 ML IV SCH (20:04)
--- NOTE | 2019-05-04 20:18 | INFECTIOUS DISEASE PROGRESS NO ---
DATE: 05/04/2019 PRESENT ILLNESS: The patient has a Klebsiella bacteremia which may have originated from illicit drug use or administration of insulin. She also has oral candidiasis. MEDICATIONS: This is the 4th day of treatment with antibiotics for the patient's bacteremia with day 1 being the first day that the repeat blood cultures were sterile. Currently the patient is on Rocephin in a dose of 1 g IV daily. PHYSICAL EXAMINATION: Vital Signs: Temperature is 98.1 degrees, pulse 119, respirations 20, blood pressure 126/90. General: This is a somewhat ill-appearing young female. Today she is just lying in bed. She says she does not feel good. Head, eyes, ears, nose and throat: She can hear my spoken words and see near objects. I do not see any white patches on her tongue. Neck: No meningismus. Lungs: Clear to auscultation. Cardiovascular: Regular heart rate. Abdomen: Soft and nontender. Bowel sounds are active. Neurologic: The patient is awake, she was able to carry on a coherent conversation. She can move her extremities. LAB AND X-RAY: The patient had a gastric emptying study and it showed it could be due to gastroparesis. CBC shows a white count of 10,400, hemoglobin 10.8, platelet count 341,000. Creatinine is 0.8. GFR is greater than 60. ASSESSMENT AND PLAN: Patient has a Klebsiella bacteremia. For now I am going to be treating the patient with Rocephin 1 g IV daily. She will need 10 more days of treatment to complete a 14 day treatment course for her bacteremia. COMORBIDITIES: Diabetes mellitus, poor diabetic control, chronic pancreatitis, cigarette smoking and illicit drug use. cc: Chas Watkins MD
[2019-05-05] MEDS: HUMALOG SUBQ SCH ×7 (03:02→21:26)
[2019-05-05] MEDS: ZOFRAN IV PRN ×2 (04:17→09:44)
[2019-05-05] MEDS: PHENERGAN IV PRN (06:53)
[2019-05-05] MEDS: SODIUM CHLORIDE 0.9% INJ PRN (06:55)
[2019-05-05 07:43] LABS: BASO# 0.03 X1000 (0.0-0.2); BASO% 0.3 % (0.0-0.8); EOS# 0.37 X1000 (0.0-0.7); EOS% 3.3 % (0.0-10.0); HEMATOCRIT 36.2 % (37.0-47.0); HEMOGLOBIN 11.2 g/dL (12.0-16.0); IMM GRAN# 0.07 X1000 (0.0-0.04); IMM GRAN% 0.6 % (0.0-0.5); LYMPH# 2.72 X1000 (1.2-3.4); LYMPH% 24.1 % (20.5-51.1); MCH 25.7 PG (27-31); MCHC 30.9 g/dL (33-37); MONO# 0.88 X1000 (0.11-0.59); MONO% 7.8 % (1.7-9.3); MPV 10.7 FL (7.4-10.4); NEUT# 7.21 X1000 (1.4-6.5); NEUT% 63.9 % (42.2-75.2); PLT 463 X1000 (130-400); RBC 4.36 XMIL (4.2-5.4); RDW 13.2 % (11.5-14.5); WBC 11.28 X1000 (4.8-10.8)
[2019-05-05] MEDS: PROTONIX IV SCH ×2 (07:47→21:27)
[2019-05-05] MEDS: ERYTHROMYCIN 250 MG in NS 150 ML IV SCH (07:47)
[2019-05-05 08:29] LABS: MAGNESIUM 1.6 mg/dL (1.5-2.7); PHOSPHORUS 2.7 mg/dL (2.7-4.5)
[2019-05-05] MEDS ORDERED: MAGNESIUM SULFATE 2 GM/S.W.I. 2 GM/50 ML IVPB IV ONE (08:33)
[2019-05-05 08:37] LABS: AGAP 21; BUN 16 mg/dL (8-22); CALCIUM 9.6 mg/dL (8.8-10.2); CHLORIDE 100 mmol/L (98-107); COSMO 285; CREATININE 0.9 mg/dL (0.5-0.9); ESTIMATED GFR > 60; GLUCOSE 116 mg/dL (70-104); SODIUM 142 mmol/L (136-145); TCO2 21 mmol/L (25-35)
[2019-05-05] MEDS: LOPRESSOR PO SCH ×2 (09:19→21:28)
[2019-05-05] MEDS: NORVASC PO SCH ×2 (09:19→21:26)
[2019-05-05] MEDS: MYCELEX TROCHE PO SCH ×5 (09:20→21:33)
[2019-05-05] MEDS: LANTUS INSULIN SUBQ SCH ×2 (09:20→21:32)
[2019-05-05] MEDS: ULTRAM PO PRN ×2 (09:44→17:20)
[2019-05-05] MEDS: REGLAN IV SCH ×3 (13:40→21:27)
--- NOTE | 2019-05-05 14:56 | PROVIDER PROGRESS NOTE ---
Progress Note Dr. Hill Progress Note/Pulmonary and or critical care We appreciated progress of care, Complications, change in diagnosis, and instructions to patient. Subjective: We note the level of consciousness, bed (chair) position, family presence (if any), level of lethargy, feeling of symptoms, and changes from baseline condition/symptom. She is lying in bed on room air with no acute distress noted. Denies abdominal tenderness. Patient states that she is feeling better today. She reports occasi onal productive cough, but no sore throat, chest pain, chest congestion or chest tightness. Objective: Vital Signs: We reviewed EMR current values for Pulse rate, Blood pressure, Pulse rate, respiratory rate and Pulse oximetry. Also noted other values and trends if present (e.g. I/O, CVP). T 98.5 (no fever in last 24 hours), CO 94 , RR 15 , BP 151/76 and SaO2 100% on room air. Physical Examination: General: Lying in bed with no acute distress noted. HEENT: Normocephalic. Trachea midline. Mucosa pink and moist with even white coating on tongue noted. Chest: Even and unlabored. Symmetrical excursion. Clear to auscultation bilaterally. CVS: Tachycardia with Regular rate and rhythm. S1 and S2 appreciated. Abdomen: Soft. non-tender, Non-distended. Normoactive bowel sounds in all 4 quadrants noted. Extremities: No pedal edema. No cyanosis. No clubbing. Neuro: Awake and alert x 3. Speech fluent. Follow simple commands. Management, face to face evaluation by Dr. Hill. CHINTAN Chaudhari did scribing only. Labs and Radiology: Reviewed available labs and radiology values available at time of EMR review. Laboratory Results 05/04/19 05/04/19 05/04/19 13:58 17:18 20:00 WBC RBC Hgb Hct MCV MCH MCHC RDW Std Deviation Plt Count MPV Immature Gran % (Auto) Neut % (Auto) Lymph % (Auto) [place] % (Auto) Eos % (Auto) Baso % (Auto) Immature Gran # (Auto) Neut # (Auto) Lymph # (Auto) [place] # (Auto) Eos # (Auto) Baso # (Auto) Sodium Potassium Chloride Carbon Dioxide Anion Gap BUN Creatinine Estimated GFR/1.73 m2 BUN/Creatinine Ratio Glucose POC Glucose 139 H 247 H D 237 H Calculated Osmolality Calcium Phosphorus Magnesium 05/04/19 05/05/19 05/05/19 23:16 04:37 06:47 WBC RBC Hgb Hct MCV MCH MCHC RDW Std Deviation Plt Count MPV Immature Gran % (Auto) Neut % (Auto) Lymph % (Auto) [place] % (Auto) Eos % (Auto) Baso % (Auto) Immature Gran # (Auto) Neut # (Auto) Lymph # (Auto) [place] # (Auto) Eos # (Auto) Baso # (Auto) Sodium Potassium Chloride Carbon Dioxide Anion Gap BUN Creatinine Estimated GFR/1.73 m2 BUN/Creatinine Ratio Glucose POC Glucose 90 D 120 H Calculated Osmolality Calcium Phosphorus 2.7 Magnesium 1.6 05/05/19 05/05/19 05/05/19 06:47 06:47 08:37 WBC 11.28 H RBC 4.36 Hgb 11.2 L Hct 36.2 L MCV 83.0 MCH 25.7 L MCHC 30.9 L RDW Std Deviation 13.2 Plt Count 463 H D MPV 10.7 H Immature Gran % (Auto) 0.6 H Neut % (Auto) 63.9 Lymph % (Auto) 24.1 [place] % (Auto) 7.8 Eos % (Auto) 3.3 Baso % (Auto) 0.3 Immature Gran # (Auto) 0.07 H Neut # (Auto) 7.21 H Lymph # (Auto) 2.72 [place] # (Auto) 0.88 H Eos # (Auto) 0.37 Baso # (Auto) 0.03 Sodium 142 Potassium 4.0 Chloride 100 Carbon Dioxide 21 L Anion Gap 21 BUN 16 Creatinine 0.9 Estimated GFR/1.73 m2 > 60 BUN/Creatinine Ratio 18 Glucose 116 H D POC Glucose 141 H Calculated Osmolality 285 Calcium 9.6 Phosphorus Magnesium Assessment: Acute respiratory failure. Selective intubated on 04/28/19 for airway protection secondary to metabolic encephalopathy. DKA. Klebsiella bacteremia. Acute encephalopathy. Cocaine abuse. Prognosis is guarded. Plan: Continue current treatment and supportive care per admitting and other teams on the case. Antibiotics (Rocephin) and bronchodilators. Tobacco cessation education when appropriate. Appropriate DVT and GI prophylaxis Input was appreciated from Admitting MD and other teams on the case. Evaluation time in minutes: 32 minutes.
[2019-05-05] MEDS: LOVENOX SUBQ SCH (17:20)
[2019-05-05] MEDS: ROCEPHIN 1 GM in NS 50 ML IV SCH (21:25)
[2019-05-05] MEDS: MIRALAX PO SCH (21:28)
--- NOTE | 2019-05-05 22:16 | PROGRESS NOTE ---
DATE: 05/05/2019 SUBJECTIVE: The patient states that she still feels nauseated whenever she tries to eat. Erythromycin was started yesterday. OBJECTIVE: Vital Signs: Temperature 97.8 degrees, blood pressure 112/70, heart rate 89, respirations 16, O2 saturation is 98% on room air. General: This is a young female lying in bed in no acute distress. Heart: S1, S2 normal. Regular rate and rhythm. Lungs: Clear to auscultation bilaterally. Abdomen: Positive bowel sounds. Soft, nontender, nondistended. Extremities: No edema. No cyanosis. Neurologic: The patient is alert and oriented x4. LABORATORY DATA: Reviewed. ASSESSMENT AND PLAN: 1. Diabetic gastroparesis versus gastric outlet obstruction. The patient was started on erythromycin before each meal yesterday. After discussion with Dr. Del Cid, we will start Reglan 5 mg IV every 6 hours and monitor her response over the weekend. 2. Global encephalopathy. Resolved. 3. Diabetic ketoacidosis. Resolved. 4. Insulin-dependent diabetes mellitus. Continue on the current insulin regimen. 5. Acute hypoxemic respiratory failure, status post extubation. Resolved. 6. Cocaine abuse. The patient has been counseled about cessation. 7. Bacteremia secondary to Klebsiella pneumoniae. Continue on Rocephin. The patient is on day 5 of 14. 8. Hypertension. Controlled. 9. Chronic pancreatitis. Aware. 10. Deep vein thrombosis prophylaxis. Continue on Lovenox. cc: Coni Franco MD MTDD
[2019-05-06] MEDS: HUMALOG SUBQ SCH ×3 (00:46→10:03)
[2019-05-06] MEDS: REGLAN IV SCH ×2 (03:48→09:46)
[2019-05-06 07:19] LABS: HEMATOCRIT 34.2 % (37.0-47.0); HEMOGLOBIN 10.8 g/dL (12.0-16.0); MCH 26.5 PG (27-31); MCHC 31.6 g/dL (33-37); MCV 83.8 FL (81-99); MPV 10.1 FL (7.4-10.4); RBC 4.08 XMIL (4.2-5.4); RDW 13.4 % (11.5-14.5); WBC 8.02 X1000 (4.8-10.8)
[2019-05-06 07:40] VITALS: BP 133/73
[2019-05-06 07:59] LABS: AGAP 10; BUN 12 mg/dL (8-22); CALCIUM 8.7 mg/dL (8.8-10.2); CHLORIDE 100 mmol/L (98-107); COSMO 275; CREATININE 0.7 mg/dL (0.5-0.9); ESTIMATED GFR > 60; GLUCOSE 63 mg/dL (70-104); POTASSIUM 3.1 mmol/L (3.5-5.1); SODIUM 139 mmol/L (136-145); TCO2 29 mmol/L (25-35)
[2019-05-06] MEDS ORDERED: KLOR-CON PO ONE (08:50)
[2019-05-06] MEDS: ULTRAM PO PRN (09:46)
[2019-05-06] MEDS: MIRALAX PO SCH (09:46)
[2019-05-06] MEDS: LOPRESSOR PO SCH (09:46)
[2019-05-06] MEDS: PROTONIX IV SCH (09:47)
[2019-05-06] MEDS: MYCELEX TROCHE PO SCH ×2 (09:48→12:16)
[2019-05-06] MEDS: NORVASC PO SCH (09:48)
[2019-05-06] MEDS: LANTUS INSULIN SUBQ SCH (09:48)
[2019-05-06] MEDS ORDERED: NEOSPORIN OINTMENT PACKET TOP ONE (11:51)
--- NOTE | 2019-05-13 07:41 | DISCHARGE SUMMARY ---
ADMISSION DATE: 04/28/2019 DISCHARGE DATE: 05/06/2019 FINAL DISCHARGE DIAGNOSES: 1. Metabolic encephalopathy. 2. Diabetic ketoacidosis. 3. Poorly-controlled insulin-dependent diabetes mellitus. 4. Diabetic gastroparesis. 5. Cocaine abuse. 6. Acute hypoxemic respiratory failure, status post extubation. 7. Bacteremia secondary to Klebsiella pneumoniae. 8. Chronic pancreatitis. 9. Hypertension. CONSULTATIONS: 1. Pulmonary consultation with Dr. Hill. 2. Neurology consultation with Dr. Jalloh. 3. ID consultation with Dr. Watkins. HOSPITAL COURSE: Ms. Cintron is a 24-year-old female with a history of insulin-dependent diabetes mellitus and DKA, who presented to the ER with altered mental status. The patient was subsequently intubated for airway protection. Upon further assessment, the patient was noted to be in DKA. The patient was admitted to the Hospitalist Service. Blood cultures were obtained. The patient was started on broad-spectrum antibiotics, as well as the DKA protocol to include IV fluids and the insulin drip. A drug tox screen was done that came back positive for cocaine. Pulmonary Medicine was consulted for assistance with vent management. There was some concern about possible meningitis, so Neurology was consulted. An attempt was made to do a bedside LP, but was unsuccessful. Ultimately, the blood cultures grew out Klebsiella pneumoniae, which was sensitive to the antibiotic that the patient was already receiving. The patient's mental status improved, and she was subsequently extubated. Following extubation, the patient complained of persistent nausea and vomiting and abdominal pain. A CT of the abdomen and pelvis revealed chronic pancreatitis and cystitis. The patient was subsequently transferred out of the ICU to the medical floor. Antiemetics were also started. A gastric emptying study was done that confirmed diabetic gastroparesis. The patient was started on Reglan before each meal, and her nausea and vomiting resolved. The patient was counseled extensively about cocaine cessation and the importance of medication compliance. The patient was seen by Dr. Chas Watkins, who recommended that the patient be treated for a total of 14 days for her Klebsiella bacteremia. The patient continued to improve clinically, and was transitioned to an oral antibiotic to complete treatment for her Klebsiella bacteremia. The patient was cleared for discharge home on 05/06/2019. DISCHARGE MEDICATIONS: 1. Lopressor 25 mg oral every 12 hours. 2. Clotrimazole 10 mg oral 5 times a day. 3. Norvasc 5 mg oral twice a day. 4. Prilosec 20 mg p.o. daily. 5. Tramadol 50 mg oral every 6 hours p.r.n. for pain. 6. MiraLAX 17 grams oral daily. 7. Levaquin 500 mg oral daily x9 days. 8. Reglan 5 mg oral before meals, take 30 minutes before breakfast, lunch, and dinner. 9. Novolin FlexPen. 10. NPH 15 units subcutaneously twice a day. DISCHARGE DIET: An 1800-ADA diet. ACTIVITY: As tolerated. FOLLOWUP INSTRUCTIONS: The patient will need to follow up with Dr. Chas Watkins in 2 weeks. The patient will need to follow up with Dr. Del Cid in within 1 to 2 weeks to be seen as a new patient for her diagnosis of gastroparesis. cc: Coni Franco MD
== END 2019-05-06 12:25 | disposition home or self-care (01) | DRG 637 ==
LOC: ED 06:29 → ICU 14:36 → SUATTDRO 14:36 → 4N 05-02 15:33
PROVIDERS: ATTEND Internal Medicine